=== PATIENT | female | born 1960 | race Hispanic/Latino ===

== ENCOUNTER 2018-12-30 19:19 | Emergency (ER) | payer OTHER ==
[2018-12-30 19:46] LABS: APPEARANCE,URINE Clear (CLEAR); BILIRUBIN,URINE Negative (NEGATIVE); COLOR,URINE Yellow (YELLOW); GLUCOSE, URINE (UA) Negative (NEGATIVE); KETONES,URINE Negative (NEGATIVE); LEUKOCYTE ESTERASE ,URINE Negative (NEGATIVE); NITRATE,URINE Negative (NEGATIVE); OCCULT BLOOD,URINE Negative (NEGATIVE); PROTEIN,URINE Negative (NEGATIVE)
[2018-12-30 19:56] LABS: BASOPHILS % (AUTO) 0.2 % (0.0-5.0); EOSINOPHILS % (AUTO) 1.7 % (0.0-8.0); HEMATOCRIT 39.2 % (36-48); LYMPHOCYTES % (AUTO) 5.8 % (21.0-51.0); MEAN CORPUSCULAR HEMOGLOBIN 32.1 pg (27.0-33.0); MEAN CORPUSCULAR HGB CONC 34.3 g/dL (32.0-36.0); MEAN CORPUSCULAR VOLUME 93.6 fL (79-99); MONOCYTES % (AUTO) 3.2 % (3.0-13.0); NEUTROPHILS % (AUTO) 89.1 % (40.0-77.0); PLATELET COUNT (AUTO) 212 K/uL (130-400); RED BLOOD CELL COUNT(AUTO) 4.19 MIL/uL (4.00-5.50); WHITE BLOOD COUNT (AUTO) 7.4 K/uL (4.8-10.8)
[2018-12-30 20:07] LABS: POTASSIUM 3.3 mmol/L (3.5-5.1)
[2018-12-30] MEDS ORDERED: ONDANSETRON HCL 4 MG/2 ML VIAL ONE (20:08)
[2018-12-30] MEDS ORDERED: DICYCLOMINE HCL 10 MG/ML 2ML AMP IM ONE (20:08)
[2018-12-30] MEDS ORDERED: ACETAMINOPHEN EXTRA STRENGTH 500 MG TABLET ONE (20:09)
[2018-12-30] MEDS ORDERED: SODIUM CHLORIDE 0.9% 1000ML 1,000 ML IV ONE ×2 (20:09→21:51)
[2018-12-30] MEDS ORDERED: SIMETHICONE 80 MG TAB.CHEW ONE (20:09)
[2018-12-30 20:10] LABS: INR 0.91 (0.85-1.15); PARTIAL THROMBOPLASTIN TIME 22.7 SEC (26.3-35.5); PROTHROMBIN TIME 9.6 SEC (9.6-11.6)
[2018-12-30 20:12] LABS: ALBUMIN 4.1 g/dL (3.5-5.0); BILIRUBIN,TOTAL 0.4 mg/dL (0.2-1.0)
[2018-12-30] MEDS ORDERED: KETOROLAC TROMETHAMINE 30MG/ML ONE (20:51)
[2018-12-30] MEDS ORDERED: MORPHINE SULFATE 2 MG/ML 1ML SYG ONE (21:51)
[2018-12-30] MEDS ORDERED: MAG HYDROX/AL HYDROX/SIMETH ES 30 ML SUSP UDCUP ONE (22:56)
[2018-12-30] MEDS ORDERED: LIDOCAINE HCL 2% VISCOUS 15 ML UDCUP ONE (22:56)
== END 2018-12-30 23:22 | disposition home or self-care (01) ==
LOC: EDH 19:19
DX: R19.7 Diarrhea, unspecified (principal); R11.10 Vomiting, unspecified; R10.13 Epigastric pain; R50.9 Fever, unspecified; I10 Essential (primary) hypertension
CPT/HCPCS: 36415; 80053; 81003; 82550; 83690; 84484; 85025; 85610; 85730; 93005; 96361; 96372; 96374; 96375; 99285; J0500; J1885; J2405; J7030 ×2

== ENCOUNTER 2021-03-09 05:30 | Observation (INO) | payer OTHER ==
[2021-03-08 15:18] LABS: BASOPHILS % (AUTO) 1.1 % (0.0-5.0); EOSINOPHILS % (AUTO) 2.7 % (0.0-8.0); HEMATOCRIT 39.7 % (36-48); LYMPHOCYTES % (AUTO) 33.1 % (21.0-51.0); MEAN CORPUSCULAR HEMOGLOBIN 31.2 pg (27.0-33.0); MEAN CORPUSCULAR HGB CONC 32.5 g/dL (32.0-36.0); MEAN CORPUSCULAR VOLUME 95.9 fL (79-99); MONOCYTES % (AUTO) 6.3 % (3.0-13.0); NEUTROPHILS % (AUTO) 56.4 % (40.0-77.0); PLATELET COUNT (AUTO) 185 K/uL (130-400); RED BLOOD CELL COUNT(AUTO) 4.14 MIL/uL (4.00-5.50); RED CELL DISTRIBUTION WIDTH 12.8 % (11.0-15.5); WHITE BLOOD COUNT (AUTO) 5.3 K/uL (4.8-10.8)
[2021-03-08 15:50] VITALS: BP 184/79
[~2021-03-09] VITALS: Ht 162.6 cm; Wt 78.7 kg
[2021-03-09] VITALS (24 sets, daily range): BP systolic 111–161; BP diastolic 60–83
[~2021-03-09 05:30] MED LIST: AEC81 PO; CEPH500C2 PO; ESOM40CA54 PO; ESZO2 PO; HYDR12.54 PO; LOSA100T58 PO; METO25 PO; NITR0.4T50 SL; SERT-439 PO
[2021-03-09] MEDS ORDERED: CEFAZOLIN SODIUM 1 GM VIAL ONE (06:05)
[2021-03-09] MEDS ORDERED: ONDANSETRON 4MG INJ ONE (06:39)
[2021-03-09] MEDS ORDERED: DEXAMETHASONE SOD PHOSPHATE 10MG/ML 1ML VIAL ONE (06:39)
[2021-03-09] MEDS ORDERED: LIDOCAINE PF 100MG/5ML (2%) SYRINGE 5ML ONE (06:39)
[2021-03-09] MEDS ORDERED: GLYCOPYRROLATE 1 MG/5 ML SYRINGE ONE (06:39)
[2021-03-09] MEDS ORDERED: NEOSTIGMINE 5MG/5ML SYR IV ONE (06:39)
[2021-03-09] MEDS ORDERED: SUCCINYLCHOLINE 200MG/10ML SYR ONE (06:39)
[2021-03-09] MEDS ORDERED: MIDAZOLAM HCL 1 MG/ML 2ML VIAL ONE (06:39)
[2021-03-09] MEDS ORDERED: FENTANYL CITRATE PF 50 MCG/1 ML 2ML VIAL ONE ×2 (06:40→08:05)
[2021-03-09] MEDS ORDERED: PROPOFOL 10 MG/ML 20ML VIAL IV ONE (06:40)
[2021-03-09] MEDS ORDERED: ROCURONIUM 10MG/1ML SYR 10 MG/ML ML ONE (06:40)
[2021-03-09] MEDS: LACTATED RINGERS 1000ML 1,000 ML IV SCH ×3 (06:49→08:54)
[2021-03-09] MEDS ORDERED: ESTROGENS,CONJUGATED 0.625 MG/GM 42.5 GM VAG CRM VG ONE (08:52)
[2021-03-09] MEDS ORDERED: MEPERIDINE-PF 25 MG/ML SYG ONE (09:29)
[2021-03-09] MEDS ORDERED: BISACODYL 10 MG SUPP.RECT RC PRN (11:00)
[2021-03-09] MEDS ORDERED: IBUPROFEN 600 MG TABLET PO PRN (11:00)
[2021-03-09] MEDS ORDERED: ONDANSETRON 4MG INJ IVP PRN (11:00)
[2021-03-09] MEDS ORDERED: ACETAMINOPHEN WITH CODEINE 1 TAB TAB PO PRN (11:00)
[2021-03-09] MEDS ORDERED: PROMETHAZINE HCL 25 MG/ML 1ML AMPULE IM PRN (11:00)
[2021-03-09] MEDS: MEPERIDINE-PF 75 MG/ML SYG IM PRN ×3 (11:52→21:17)
[2021-03-09] MEDS: PROMETHAZINE HCL 25 MG/ML 1ML AMPULE IM PRN ×3 (11:52→21:16)
[2021-03-09] MEDS: DEXTROSE 5 %-0.45 % NACL 1,000 ML IV PRN ×2 (11:52→19:03)
[2021-03-09] MEDS: SIMETHICONE 80 MG TAB.CHEW PO PRN (21:08)
[2021-03-09] MEDS: DOCUSATE SODIUM 100 MG CAP PO PRN (21:08)
[2021-03-10] MEDS: DEXTROSE 5 %-0.45 % NACL 1,000 ML IV PRN (02:50)
[2021-03-10 03:15] VITALS: BP 123/69
[2021-03-10] MEDS: PROMETHAZINE HCL 25 MG/ML 1ML AMPULE IM PRN (04:48)
[2021-03-10] MEDS: MEPERIDINE-PF 75 MG/ML SYG IM PRN (04:50)
[2021-03-10 05:39] LABS: HEMATOCRIT 34.4 % (36-48); MEAN CORPUSCULAR HEMOGLOBIN 31.3 pg (27.0-33.0); MEAN CORPUSCULAR HGB CONC 33.1 g/dL (32.0-36.0); MEAN CORPUSCULAR VOLUME 94.5 fL (79-99); RED BLOOD CELL COUNT(AUTO) 3.64 MIL/uL (4.00-5.50); RED CELL DISTRIBUTION WIDTH 12.5 % (11.0-15.5); WHITE BLOOD COUNT (AUTO) 8.4 K/uL (4.8-10.8)
[2021-03-10] MEDS ORDERED: HYDROCODONE/ACETAMINOPHEN 5/325 MG TAB PO PRN (07:30)
[2021-03-10] MEDS: IBUPROFEN 800 MG TAB PO PRN ×2 (09:43→20:11)
[2021-03-10] MEDS: DOCUSATE SODIUM 100 MG CAP PO PRN ×2 (09:43→21:54)
[2021-03-10] MEDS: SIMETHICONE 80 MG TAB.CHEW PO PRN ×2 (09:43→21:54)
[2021-03-10 11:01] VITALS: BP 145/65
[2021-03-10 16:32] VITALS: BP 106/58
[2021-03-10 19:52] VITALS: BP 100/53
[2021-03-10 23:02] VITALS: BP 106/55
[2021-03-11 03:08] VITALS: BP 103/52
[2021-03-11 07:13] VITALS: BP 122/71
[2021-03-11] MEDS: IBUPROFEN 800 MG TAB PO PRN ×2 (07:59→15:52)
[2021-03-11] MEDS: SIMETHICONE 80 MG TAB.CHEW PO PRN ×2 (07:59→15:51)
[2021-03-11] MEDS: DOCUSATE SODIUM 100 MG CAP PO PRN (07:59)
[2021-03-11 11:51] VITALS: BP 129/73
== END 2021-03-11 18:15 | disposition home or self-care (01) ==
LOC: DAH 05:30 → DAHIP 05:31 → DAH 05:31 → WSH 10:15
PROVIDERS: ADMIT Obstetrics & Gynecology; ATTEND Obstetrics & Gynecology
DX: N81.10 Cystocele, unspecified (principal); Z20.822 Contact with and (suspected) exposure to COVID-19; N81.6 Rectocele; N90.89 Other specified noninflammatory disorders of vulva and perineum; I10 Essential (primary) hypertension; F32.9 Major depressive disorder, single episode, unspecified; Z79.899 Other long term (current) drug therapy; Z98.890 Other specified postprocedural states; Z90.49 Acquired absence of other specified parts of digestive tract; Z90.710 Acquired absence of both cervix and uterus
CPT/HCPCS: 36415 ×2; 57265; 85025; 85027; 86850; 86900; 86901; 87635; 96360; 96361 ×2; 96372 ×2; A4215; A4216; A4221; A4222; A4223 ×2; A4344; A4351; A4510; A4600; A4606; A4663; A6260; C1771; C9803; G0378 ×58; J0330; J0690; J1100; J2001; J2175 ×5; J2250; J2405; J2550 ×4; J2704; J2710; J3010 ×2; J3490; J7120 ×2

== ENCOUNTER 2021-03-22 19:14 | Emergency (ER) | payer OTHER ==
[~2021-03-22] VITALS: Ht 162.6 cm; Wt 80.3 kg
[2021-03-22 19:53] LABS: BILIRUBIN,URINE Negative (NEGATIVE); COLOR,URINE Yellow (YELLOW); GLUCOSE, URINE (UA) Negative (NEGATIVE); KETONES,URINE Negative (NEGATIVE); LEUKOCYTE ESTERASE ,URINE Large (NEGATIVE); NITRATE,URINE Negative (NEGATIVE); OCCULT BLOOD,URINE Large (NEGATIVE); PH,URINE 6.5 (5.0-8.0); PROTEIN,URINE POS 1+ mg/dL (NEGATIVE)
[2021-03-22 19:54] LABS: APPEARANCE,URINE CLOUDY (CLEAR)
[2021-03-22 19:59] LABS: BACTERIA,URINE Few /HPF (None Seen); WBC,URINE 26-50 /HPF (0-1)
[2021-03-22 20:00] LABS: SQUAMOUS EPITHELIAL CELL,UR Few /HPF (0-2); TRANSITIONAL EPI CELLS,URINE Rare /HPF (None Seen)
[2021-03-22 20:21] LABS: BASOPHILS % (AUTO) 0.7 % (0.0-5.0); HEMATOCRIT 34.7 % (36-48); LYMPHOCYTES % (AUTO) 24.9 % (21.0-51.0); MEAN CORPUSCULAR HEMOGLOBIN 31.6 pg (27.0-33.0); MEAN CORPUSCULAR HGB CONC 33.7 g/dL (32.0-36.0); MEAN CORPUSCULAR VOLUME 93.8 fL (79-99); MONOCYTES % (AUTO) 6.7 % (3.0-13.0); NEUTROPHILS % (AUTO) 64.6 % (40.0-77.0); PLATELET COUNT (AUTO) 278 K/uL (130-400); RED CELL DISTRIBUTION WIDTH 12.8 % (11.0-15.5)
[2021-03-22 20:42] LABS: CREATININE 0.8 mg/dL (0.5-1.5); POTASSIUM 3.8 mmol/L (3.5-5.1)
[2021-03-22] MEDS ORDERED: PROCHLORPERAZINE 10MG/2ML INJ IVP ONE (20:45)
[2021-03-22] MEDS ORDERED: FAMOTIDINE 20MG VIAL IV ONE (20:45)
[2021-03-22 20:46] LABS: ALBUMIN 3.6 g/dL (3.5-5.0); BILIRUBIN,TOTAL 0.3 mg/dL (0.2-1.0); TOTAL PROTEIN, SERUM 7.3 g/dL (6.0-8.3)
[2021-03-22] MEDS ORDERED: LEVOFLOXACIN 500 MG TABLET ONE (23:17)
[2021-03-22] MEDS ORDERED: LEVO750T46 PO (23:20)
[2021-03-22 23:43] VITALS: BP 135/72
== END 2021-03-22 23:44 | disposition home or self-care (01) ==
LOC: EDH 19:14
DX: N99.820 Postprocedural hemorrhage of a genitourinary system organ or structure following a genitourinary system procedure (principal); R42 Dizziness and giddiness; R11.0 Nausea; R10.9 Unspecified abdominal pain; I10 Essential (primary) hypertension; F41.9 Anxiety disorder, unspecified; Z79.82 Long term (current) use of aspirin; Z79.899 Other long term (current) drug therapy; Z90.49 Acquired absence of other specified parts of digestive tract; Z98.890 Other specified postprocedural states
CPT/HCPCS: 36415; 80053; 81001; 82150; 83690; 84484; 85025; 87077 ×2; 87088; 87186 ×2; 96374; 96375; 99284; J0780; J3490

== ENCOUNTER 2022-03-07 09:17 | Emergency (ER) | payer OTHER ==
[~2022-03-07] VITALS: Ht 162.6 cm; Wt 88.9 kg
[~2022-03-07 09:17] MED LIST changes: +LEVO750T68 PO
[2022-03-07] MEDS ORDERED: IPRATROPIUM/ALBUTEROL SULFATE 3 ML SOLUTION IH ONE (09:30)
[2022-03-07] MEDS ORDERED: IBUPROFEN 800 MG TAB PO ONE (09:30)
[2022-03-07] MEDS ORDERED: DIPHENHYDRAMINE HCL 25 MG CAPSULE PO ONE (09:30)
[2022-03-07] MEDS ORDERED: FAMOTIDINE 20MG TAB PO ONE (09:30)
[2022-03-07 10:45] VITALS: BP 180/88
[2022-03-07] MEDS ORDERED: LORA-868 PO (10:51)
[2022-03-07] MEDS ORDERED: ALBUHFA IH (10:51)
[2022-03-07] MEDS ORDERED: OSEL75 PO (10:51)
== END 2022-03-07 10:57 | disposition home or self-care (01) ==
LOC: EDH 09:17
DX: J10.1 Influenza due to other identified influenza virus with other respiratory manifestations (principal); I10 Essential (primary) hypertension; Z79.1 Long term (current) use of non-steroidal anti-inflammatories (NSAID); Z79.82 Long term (current) use of aspirin; Z90.49 Acquired absence of other specified parts of digestive tract
CPT/HCPCS: 99284; 71045; 87635; 87804 ×2; 94640; Q0163; C9803

== ENCOUNTER 2022-05-07 06:06 | Emergency (ER) | payer OTHER ==
[~2022-05-07] VITALS: Ht 162.6 cm; Wt 87.5 kg
[~2022-05-07 06:06] MED LIST changes: +ALBUHFA IH; +LORA-868 PO; +OSEL75 PO
[2022-05-07 06:55] LABS: BASOPHILS % (AUTO) 0.2 % (0.0-5.0); HEMATOCRIT 40.4 % (36-48); LYMPHOCYTES % (AUTO) 7.4 % (21.0-51.0); MEAN CORPUSCULAR HGB CONC 34.4 g/dL (32.0-36.0); MEAN CORPUSCULAR VOLUME 90.2 fL (79-99); MONOCYTES % (AUTO) 3.9 % (3.0-13.0); NEUTROPHILS % (AUTO) 87.2 % (40.0-77.0); PLATELET COUNT (AUTO) 221 K/uL (130-400); RED BLOOD CELL COUNT(AUTO) 4.48 MIL/uL (4.00-5.50); RED CELL DISTRIBUTION WIDTH 12.4 % (11.0-15.5); WHITE BLOOD COUNT (AUTO) 6.2 K/uL (4.8-10.8)
[2022-05-07 07:04] LABS: APPEARANCE,URINE CLEAR (CLEAR); BILIRUBIN,URINE NEGATIVE (NEGATIVE); COLOR,URINE YELLOW (YELLOW); GLUCOSE, URINE (UA) NEGATIVE (NEGATIVE); KETONES,URINE NEGATIVE (NEGATIVE); LEUKOCYTE ESTERASE ,URINE NEGATIVE Leu/uL (NEGATIVE); NITRATE,URINE NEGATIVE (NEGATIVE); OCCULT BLOOD,URINE NEGATIVE (NEGATIVE); PROTEIN,URINE 20 mg/dL (NEGATIVE); UROBILINOGEN,URINE 0.2 mg/dL (0.2-1.0)
[2022-05-07 07:11] LABS: ALBUMIN 3.9 g/dL (3.5-5.0); CREATININE 0.7 mg/dL (0.5-1.5); POTASSIUM 3.4 mmol/L (3.5-5.1); TOTAL PROTEIN, SERUM 7.4 g/dL (6.0-8.3)
[2022-05-07] MEDS ORDERED: KETOROLAC 15MG/ML VIAL (15MG/ML) IV ONE (09:00)
[2022-05-07] MEDS ORDERED: PROCHLORPERAZINE 10MG/2ML INJ IV ONE (09:00)
[2022-05-07] MEDS ORDERED: LACTATED RINGERS 1000ML 1,000 ML IV ONE (09:00)
[2022-05-07] MEDS ORDERED: DiphenhydrAMINE HCL 50 MG/ML VIAL IV ONE (09:00)
[2022-05-07] MEDS ORDERED: LOPE2TAB26 PO (10:04)
[2022-05-07] MEDS ORDERED: IBUP-2070 PO (10:04)
[2022-05-07] MEDS ORDERED: ONDA4TAB10 PO (10:04)
[2022-05-07 10:22] VITALS: BP 129/76
== END 2022-05-07 10:22 | disposition home or self-care (01) ==
LOC: EDH 06:06
DX: K52.9 Noninfective gastroenteritis and colitis, unspecified (principal); E86.0 Dehydration; Z20.822 Contact with and (suspected) exposure to COVID-19; I10 Essential (primary) hypertension; Z98.890 Other specified postprocedural states; Z90.49 Acquired absence of other specified parts of digestive tract; Z79.899 Other long term (current) drug therapy; Z79.82 Long term (current) use of aspirin
CPT/HCPCS: 99284; 96374; 96375; 87635; 96361; 80053; 85025; 87804 ×2; 83605; 81003; 36415; C9803; J7120; J1200; J0780; J1885

== ENCOUNTER 2022-08-18 09:36 | Emergency (ER) | payer BC, OTHER ==
[~2022-08-18] VITALS: Ht 162.6 cm; Wt 88.0 kg
[~2022-08-18 09:36] MED LIST changes: +IBUP-2070 PO; +LOPE2TAB26 PO; +ONDA4TAB10 PO
[2022-08-18 09:41] VITALS: BP 183/77
[2022-08-18] MEDS ORDERED: ACETAMINOPHEN 500 MG TABLET PO ONE (10:00)
[2022-08-18 10:53] LABS: BASOPHILS % (AUTO) 0.5 % (0.0-5.0); EOSINOPHILS % (AUTO) 3.5 % (0.0-8.0); HEMATOCRIT 36.5 % (36-48); LYMPHOCYTES % (AUTO) 15.6 % (21.0-51.0); MEAN CORPUSCULAR HEMOGLOBIN 29.9 pg (27.0-33.0); MEAN CORPUSCULAR HGB CONC 32.9 g/dL (32.0-36.0); MONOCYTES % (AUTO) 9.1 % (3.0-13.0); NEUTROPHILS % (AUTO) 70.9 % (40.0-77.0); PLATELET COUNT (AUTO) 239 K/uL (130-400); RED BLOOD CELL COUNT(AUTO) 4.01 MIL/uL (4.00-5.50); RED CELL DISTRIBUTION WIDTH 13.2 % (11.0-15.5); WHITE BLOOD COUNT (AUTO) 8.3 K/uL (4.8-10.8)
[2022-08-18 11:09] LABS: ALBUMIN 3.9 g/dL (3.5-5.0); CREATININE 0.9 mg/dL (0.5-1.5); POTASSIUM 3.7 mmol/L (3.5-5.1); TOTAL PROTEIN, SERUM 7.2 g/dL (6.0-8.3)
[2022-08-18] MEDS ORDERED: AMOX500C2 PO (12:08)
[2022-08-18] MEDS ORDERED: FLUT16H NASAL (12:08)
[2022-08-18 12:13] LABS: APPEARANCE,URINE CLEAR (CLEAR); BILIRUBIN,URINE NEGATIVE (NEGATIVE); COLOR,URINE LIGHT-YELLOW (YELLOW); GLUCOSE, URINE (UA) NEGATIVE (NEGATIVE); KETONES,URINE NEGATIVE (NEGATIVE); LEUKOCYTE ESTERASE ,URINE NEGATIVE Leu/uL (NEGATIVE); NITRATE,URINE NEGATIVE (NEGATIVE); OCCULT BLOOD,URINE NEGATIVE (NEGATIVE); PROTEIN,URINE NEGATIVE (NEGATIVE); UROBILINOGEN,URINE 0.2 mg/dL (0.2-1.0)
== END 2022-08-18 12:51 | disposition home or self-care (01) ==
LOC: EDH 09:36
DX: J32.9 Chronic sinusitis, unspecified (principal); I10 Essential (primary) hypertension; Z90.710 Acquired absence of both cervix and uterus; Z90.49 Acquired absence of other specified parts of digestive tract; Z79.1 Long term (current) use of non-steroidal anti-inflammatories (NSAID); Z79.82 Long term (current) use of aspirin; Z79.899 Other long term (current) drug therapy; Z20.822 Contact with and (suspected) exposure to COVID-19
CPT/HCPCS: 99283; 71045; 87635; 80053; 85025; 87804 ×2; 81003; 36415; C9803

== ENCOUNTER 2022-10-06 15:29 | Observation (INO) | payer BC ==
[~2022-10-06] VITALS: Ht 157.5 cm; Wt 88.1 kg
[~2022-10-06 15:29] MED LIST changes: +AMOX500C2 PO; +FLUT16H NASAL; -LOSA100T58 PO; +LOSA100T59 PO
[2022-10-06 16:07] LABS: BASOPHILS % (AUTO) 0.9 % (0.0-5.0); EOSINOPHILS % (AUTO) 4.6 % (0.0-8.0); HEMATOCRIT 38.8 % (36-48); LYMPHOCYTES % (AUTO) 34.7 % (21.0-51.0); MEAN CORPUSCULAR HEMOGLOBIN 29.7 pg (27.0-33.0); MEAN CORPUSCULAR HGB CONC 33.5 g/dL (32.0-36.0); MEAN CORPUSCULAR VOLUME 88.8 fL (79-99); MONOCYTES % (AUTO) 7.7 % (3.0-13.0); NEUTROPHILS % (AUTO) 51.9 % (40.0-77.0); PLATELET COUNT (AUTO) 208 K/uL (130-400); RED BLOOD CELL COUNT(AUTO) 4.37 MIL/uL (4.00-5.50); RED CELL DISTRIBUTION WIDTH 13.2 % (11.0-15.5); WHITE BLOOD COUNT (AUTO) 5.7 K/uL (4.8-10.8)
[2022-10-06 16:20] LABS: POTASSIUM 3.4 mmol/L (3.5-5.1)
[2022-10-06 16:23] LABS: INR 0.94 (0.85-1.15); PROTHROMBIN TIME 10.3 SEC (9.6-11.6)
[2022-10-06 16:24] LABS: PARTIAL THROMBOPLASTIN TIME 26.6 SEC (26.3-35.5)
[2022-10-06] MEDS ORDERED: IOHEXOL-350 75 ML VIAL IV ONE (16:27)
[2022-10-06] MEDS ORDERED: HEPARIN 25,000 UNITS/250ML D5W 250 ML IV SCH (17:30)
[2022-10-06] MEDS ORDERED: CLONIDINE HCL 0.1 MG TABLET PO PRN (20:30)
[2022-10-06] MEDS ORDERED: HYDRALAZINE 20MG/ML VIAL IV PRN (20:30)
[2022-10-06] MEDS ORDERED: LACTULOSE 20 GM/30 ML UDCUP PO PRN (20:30)
[2022-10-06] MEDS ORDERED: ONDANSETRON 4MG INJ IVP PRN (20:30)
[2022-10-06] MEDS ORDERED: LABETALOL 20MG SYG IV PRN (20:30)
[2022-10-06] MEDS ORDERED: ACETAMINOPHEN 650 MG SUPPOSITORY RC PRN (20:30)
[2022-10-06] MEDS: LACTATED RINGERS 1000ML 1,000 ML IV SCH (20:59)
[2022-10-06] MEDS: ACETAMINOPHEN 325 MG TAB PO PRN (21:00)
[2022-10-06] MEDS: INSULIN HUMULIN R 100 UNIT/ML 3ML SQ SCH (21:00)
[2022-10-06] MEDS ORDERED: ENOXAPARIN SODIUM 100 MG/1 ML SQ ONE (21:30)
[2022-10-06 22:25] VITALS: BP 150/73
[2022-10-06] MEDS ORDERED: VANCOMYCIN PROTOCOL PER PHARMACY IV SCH (23:00)
[2022-10-06] MEDS ORDERED: ZOLP5TAB2 PO (23:01)
[2022-10-06] MEDS ORDERED: VANCOMYCIN 1G/250ML KIT 250 ML IV ONE (23:45)
[2022-10-07] MEDS ORDERED: HYDROMORPHONE 1 MG INJ IVP ONE
[2022-10-07 03:31] VITALS: BP 101/48
[2022-10-07] MEDS: KETOROLAC 15MG/ML VIAL (15MG/ML) IV PRN ×3 (04:34→21:52)
[2022-10-07] MEDS: ACETAMINOPHEN 325 MG TAB PO PRN ×2 (05:23→20:17)
[2022-10-07] MEDS: INSULIN HUMULIN R 100 UNIT/ML 3ML SQ SCH ×4 (05:44→19:54)
[2022-10-07 06:03] LABS: HEMATOCRIT 34.1 % (36-48); MEAN CORPUSCULAR HEMOGLOBIN 30.4 pg (27.0-33.0); MEAN CORPUSCULAR HGB CONC 33.4 g/dL (32.0-36.0); MEAN CORPUSCULAR VOLUME 90.9 fL (79-99); RED BLOOD CELL COUNT(AUTO) 3.75 MIL/uL (4.00-5.50); RED CELL DISTRIBUTION WIDTH 13.3 % (11.0-15.5); WHITE BLOOD COUNT (AUTO) 5.4 K/uL (4.8-10.8)
[2022-10-07 06:35] LABS: CREATININE 0.9 mg/dL (0.5-1.5); MAGNESIUM 1.9 mg/dL (1.80-2.40); PHOSPHORUS 3.8 mg/dL (2.5-4.9); POTASSIUM 4.2 mmol/L (3.5-5.1)
[2022-10-07 08:00] VITALS: BP 126/68
[2022-10-07] MEDS: FAMOTIDINE 20MG TAB PO SCH (08:55)
[2022-10-07] MEDS: ENOXAPARIN SODIUM 100 MG/1 ML SQ SCH ×2 (08:56→20:16)
[2022-10-07] MEDS: LACTATED RINGERS 1000ML 1,000 ML IV SCH ×2 (10:42→23:10)
[2022-10-07] MEDS ORDERED: ZOLPIDEM TARTRATE 5 MG TAB PO PRN (11:00)
[2022-10-07] MEDS ORDERED: ALPRAZOLAM 0.25 MG TABLET PO PRN (11:00)
[2022-10-07] MEDS ORDERED: HYDROCODONE/ACETAMINOPHEN 5/325 MG TAB PO PRN (11:00)
[2022-10-07 11:35] LABS: ABG BASE EXCESS -1.5 mmol/L (-2.0-3.0); ABG HCO3 22.6 mmol/L (21.0-28.0); ABG OXYGEN SATURATION 93.8 % (95.0-99.0); ABG PCO2 36 mmHg (32-45)
[2022-10-07 12:00] VITALS: BP 126/61
[2022-10-07 16:00] VITALS: BP 147/69
[2022-10-07 19:18] VITALS: BP 121/88
[2022-10-07] MEDS: APIXABAN 5 MG TABLET PO SCH (20:15)
[2022-10-07] MEDS ORDERED: VANCOMYCIN 1G/250ML KIT 250 ML IV SCH (21:00)
[2022-10-07 23:21] VITALS: BP 141/84
[2022-10-08] MEDS: LACTATED RINGERS 1000ML 1,000 ML IV SCH (02:04)
[2022-10-08 03:55] VITALS: BP 142/76
[2022-10-08 05:30] LABS: HEMATOCRIT 33.1 % (36-48); MEAN CORPUSCULAR HEMOGLOBIN 29.9 pg (27.0-33.0); MEAN CORPUSCULAR HGB CONC 32.9 g/dL (32.0-36.0); MEAN CORPUSCULAR VOLUME 90.9 fL (79-99); RED BLOOD CELL COUNT(AUTO) 3.64 MIL/uL (4.00-5.50); RED CELL DISTRIBUTION WIDTH 13.4 % (11.0-15.5); WHITE BLOOD COUNT (AUTO) 4.2 K/uL (4.8-10.8)
[2022-10-08 05:55] LABS: CREATININE 0.8 mg/dL (0.5-1.5); MAGNESIUM 1.9 mg/dL (1.80-2.40); POTASSIUM 3.5 mmol/L (3.5-5.1)
[2022-10-08] MEDS: INSULIN HUMULIN R 100 UNIT/ML 3ML SQ SCH ×2 (05:56→11:30)
[2022-10-08 08:41] VITALS: BP 161/88
[2022-10-08] MEDS: FAMOTIDINE 20MG TAB PO SCH (08:58)
[2022-10-08] MEDS: APIXABAN 5 MG TABLET PO SCH (08:58)
[2022-10-08 12:27] VITALS: BP 150/84
[2022-10-14] MEDS ORDERED: APIXABAN 5 MG TABLET PO SCH (21:00)
== END 2022-10-08 13:50 | disposition home or self-care (01) ==
LOC: EDH 15:29 → EDHIP 20:07 → 3CH 22:47
PROVIDERS: ADMIT Internal Medicine Critical Care Medicine; ATTEND Internal Medicine Critical Care Medicine
DX: I82.4Z2 Acute embolism and thrombosis of unspecified deep veins of left distal lower extremity (principal); J96.01 Acute respiratory failure with hypoxia; I10 Essential (primary) hypertension; E66.01 Morbid (severe) obesity due to excess calories; F41.9 Anxiety disorder, unspecified; M70.52 Other bursitis of knee, left knee; Z68.36 Body mass index [BMI] 36.0-36.9, adult; Z86.711 Personal history of pulmonary embolism; Z90.49 Acquired absence of other specified parts of digestive tract; Z90.710 Acquired absence of both cervix and uterus; Z79.899 Other long term (current) drug therapy
CPT/HCPCS: 96372 ×2; 96361 ×3; 96365; 96375 ×2; 80048 ×3; 85025; 85378; 85610; 85730; 82948 ×7; 36415 ×3; 71270; 93970; 99291; 93005; 96376; 96366; 83735 ×2; 84100; 82803; 85027 ×2; 36600; 94660; 85732; G0378 ×42; J7120; J1170; J0360; J2405 ×2; J1650 ×3; J3370; Q9967; J1885 ×3

== ENCOUNTER 2022-10-25 06:31 | Emergency (ER) | payer BC ==
[~2022-10-25] VITALS: Ht 157.5 cm; Wt 90.4 kg
[~2022-10-25 06:31] MED LIST changes: -AEC81 PO; -ALBUHFA IH; -AMOX500C2 PO; -CEPH500C2 PO; -ESOM40CA54 PO; -ESZO2 PO; -FLUT16H NASAL; -IBUP-2070 PO; -LEVO750T68 PO; -LOPE2TAB26 PO; -LORA-868 PO; -NITR0.4T50 SL; -ONDA4TAB10 PO; -OSEL75 PO; -SERT-439 PO; +ZOLP5TAB2 PO
[2022-10-25] MEDS ORDERED: 0.9%NACL 1000ML 1,000 ML IV ONE (07:00)
[2022-10-25] MEDS ORDERED: ONDANSETRON 4MG INJ IVP ONE (07:00)
[2022-10-25 07:09] LABS: BASOPHILS % (AUTO) 0.5 % (0.0-5.0); EOSINOPHILS % (AUTO) 3.6 % (0.0-8.0); MEAN CORPUSCULAR HEMOGLOBIN 30.4 pg (27.0-33.0); MEAN CORPUSCULAR HGB CONC 33.3 g/dL (32.0-36.0); MEAN CORPUSCULAR VOLUME 91.3 fL (79-99); MONOCYTES % (AUTO) 7.3 % (3.0-13.0); NEUTROPHILS % (AUTO) 71.1 % (40.0-77.0); PLATELET COUNT (AUTO) 276 K/uL (130-400); RED BLOOD CELL COUNT(AUTO) 4.71 MIL/uL (4.00-5.50); RED CELL DISTRIBUTION WIDTH 13.8 % (11.0-15.5); WHITE BLOOD COUNT (AUTO) 7.3 K/uL (4.8-10.8)
[2022-10-25 07:12] LABS: APPEARANCE,URINE TURBID (CLEAR); BILIRUBIN,URINE NEGATIVE (NEGATIVE); COLOR,URINE YELLOW (YELLOW); GLUCOSE, URINE (UA) 50 mg/dL (NEGATIVE); KETONES,URINE NEGATIVE (NEGATIVE); LEUKOCYTE ESTERASE ,URINE 250 Leu/uL (NEGATIVE); NITRATE,URINE NEGATIVE (NEGATIVE); PH,URINE 5.5 (5.0-8.0); PROTEIN,URINE 100 mg/dL (NEGATIVE)
[2022-10-25 07:16] LABS: BACTERIA,URINE FEW /HPF (None Seen); HYALINE CASTS, URINE >100 /LPF (0-1 /LPF); MUCUS,URINE MANY LPF (None Seen); SQUAMOUS EPITHELIAL CELL,UR MANY /HPF (0-2); WBC,URINE 26-50 /HPF (0-1)
[2022-10-25] MEDS ORDERED: MORPHINE 2 MG SYG IVP ONE (07:30)
[2022-10-25 07:36] VITALS: BP 122/61
[2022-10-25 08:15] LABS: ALBUMIN 3.2 g/dL (3.5-5.0); CREATININE 1.3 mg/dL (0.5-1.5); POTASSIUM 3.2 mmol/L (3.5-5.1); TOTAL PROTEIN, SERUM 6.4 g/dL (6.0-8.3)
[2022-10-25] MEDS ORDERED: KCL 20 MEQ ERTAB PO ONE (08:30)
[2022-10-25] MEDS ORDERED: LACT10SO5 PO (08:38)
== END 2022-10-25 09:10 | disposition home or self-care (01) ==
LOC: EDH 06:31
DX: K59.00 Constipation, unspecified (principal); R10.13 Epigastric pain; R10.12 Left upper quadrant pain; R11.0 Nausea; I10 Essential (primary) hypertension; Z79.899 Other long term (current) drug therapy; Z90.710 Acquired absence of both cervix and uterus; Z90.49 Acquired absence of other specified parts of digestive tract
CPT/HCPCS: 99284; 74176; 96374; 96361; 96375; 84484; 80053; 83690; 85025; 87088; 81001; 36415; 93005; J2270; J7030; J2405

== ENCOUNTER 2023-04-29 06:19 | Emergency (ER) | payer BC ==
[~2023-04-29] VITALS: Ht 162.6 cm; Wt 93.0 kg
[~2023-04-29 06:19] MED LIST changes: +LACT10SO5 PO
[2023-04-29] MEDS ORDERED: MECLIZINE HCL 25 MG TABLET PO ONE (06:30)
[2023-04-29 07:19] VITALS: BP 175/76; PULSE 50; RESP 16; O2SAT 97
[2023-04-29 07:19] LABS: BASOPHILS # (AUTO) 0.06 K/uL (0.00-0.20); EOSINOPHILS # (AUTO) 0.33 K/uL (0.00-0.70); EOSINOPHILS % (AUTO) 5.5 % (0.0-8.0); IMMATURE GRANULOCYTE ABSOLUTE 0.03 K/uL (0-1); LYMPHOCYTES # (AUTO) 1.9 K/uL (1.0-4.8); LYMPHOCYTES % (AUTO) 30.8 % (21.0-51.0); MEAN CORPUSCULAR HEMOGLOBIN 31.2 pg (27.0-33.0); MEAN CORPUSCULAR HGB CONC 33.5 g/dL (32.0-36.0); MONOCYTES # (AUTO) 0.4 K/uL (0.1-1.0); NEUTROPHILS # (AUTO) 3.3 K/uL (1.8-7.7); NEUTROPHILS % (AUTO) 55.2 % (40.0-77.0); PLATELET COUNT (AUTO) 218 K/uL (130-400); RED CELL DISTRIBUTION WIDTH 12.7 % (11.0-15.5)
[2023-04-29 08:18] LABS: CREATININE 0.8 mg/dL (0.5-1.5); POTASSIUM 4.2 mmol/L (3.5-5.1)
[2023-04-29 08:25] LABS: BILIRUBIN,TOTAL 0.6 mg/dL (0.2-1.0); TOTAL PROTEIN, SERUM 7.8 g/dL (6.0-8.3)
[2023-04-29] MEDS ORDERED: PRED20TA3 PO (10:11)
[2023-04-29] MEDS ORDERED: FLUT16H NASAL (10:12)
[2023-04-29] MEDS ORDERED: MECL-302 PO (10:12)
[2023-04-29] MEDS ORDERED: PREDNISONE 20 MG TABLET PO ONE (10:30)
== END 2023-04-29 10:25 | disposition home or self-care (01) ==
LOC: EDH 06:19
DX: H81.13 Benign paroxysmal vertigo, bilateral (principal); H65.93 Unspecified nonsuppurative otitis media, bilateral; I10 Essential (primary) hypertension; Z90.49 Acquired absence of other specified parts of digestive tract; Z90.710 Acquired absence of both cervix and uterus; Z79.899 Other long term (current) drug therapy; Z98.890 Other specified postprocedural states
CPT/HCPCS: 36415; 70450; 80053; 82550; 84484; 85025; 93005

== ENCOUNTER 2023-06-06 07:19 | Emergency (ER) | payer BC ==
[~2023-06-06] VITALS: Ht 162.6 cm; Wt 84.4 kg
[~2023-06-06 07:19] MED LIST changes: +FLUT16H NASAL; +MECL-302 PO; +PRED20TA3 PO
[2023-06-06 11:12] LABS: CREATININE 1.1 mg/dL (0.5-1.5); POTASSIUM 3.9 mmol/L (3.5-5.1)
[2023-06-06 11:17] LABS: ALBUMIN 4.3 g/dL (3.5-5.0); BASOPHILS # (AUTO) 0.05 K/uL (0.00-0.20); BASOPHILS % (AUTO) 0.7 % (0.0-5.0); BILIRUBIN,TOTAL 0.5 mg/dL (0.2-1.0); EOSINOPHILS # (AUTO) 0.13 K/uL (0.00-0.70); EOSINOPHILS % (AUTO) 1.7 % (0.0-8.0); HEMATOCRIT 41.8 % (36-48); IMMATURE GRANULOCYTE ABSOLUTE 0.03 K/uL (0-1); LYMPHOCYTES # (AUTO) 1.8 K/uL (1.0-4.8); LYMPHOCYTES % (AUTO) 23.5 % (21.0-51.0); MEAN CORPUSCULAR HEMOGLOBIN 31.9 pg (27.0-33.0); MEAN CORPUSCULAR HGB CONC 34.7 g/dL (32.0-36.0); MEAN CORPUSCULAR VOLUME 92.1 fL (79-99); MONOCYTES # (AUTO) 0.5 K/uL (0.1-1.0); NEUTROPHILS % (AUTO) 66.7 % (40.0-77.0); PLATELET COUNT (AUTO) 219 K/uL (130-400); RED BLOOD CELL COUNT(AUTO) 4.54 MIL/uL (4.00-5.50); RED CELL DISTRIBUTION WIDTH 12.6 % (11.0-15.5); TOTAL PROTEIN, SERUM 8.3 g/dL (6.0-8.3); WHITE BLOOD COUNT (AUTO) 7.5 K/uL (4.8-10.8)
[2023-06-06] MEDS: KETOROLAC 15MG/ML VIAL (15MG/ML) IV ONE (13:00)
[2023-06-06] MEDS: FAMOTIDINE 20MG VIAL IV ONE (13:00)
[2023-06-06] MEDS: ONDANSETRON 4MG INJ IVP ONE (13:00)
[2023-06-06] MEDS ORDERED: ONDA4TAB10 PO (13:42)
[2023-06-06] MEDS ORDERED: PANT40TA PO (13:42)
[2023-06-06 13:53] VITALS: BP 154/78; PULSE 78; RESP 18; O2SAT 98
[2023-06-06 14:20] LABS: APPEARANCE,URINE CLEAR (CLEAR); BILIRUBIN,URINE NEGATIVE (NEGATIVE); COLOR,URINE LIGHT-YELLOW (YELLOW); GLUCOSE, URINE (UA) >=1000 mg/dL (NEGATIVE); KETONES,URINE NEGATIVE (NEGATIVE); LEUKOCYTE ESTERASE ,URINE NEGATIVE Leu/uL (NEGATIVE); NITRATE,URINE NEGATIVE (NEGATIVE); OCCULT BLOOD,URINE NEGATIVE (NEGATIVE); PROTEIN,URINE NEGATIVE (NEGATIVE); UROBILINOGEN,URINE 0.2 mg/dL (0.2-1.0)
[2023-06-06 14:27] LABS: ADD UA MICROSCOPIC YES
[2023-06-06 14:32] LABS: SQUAMOUS EPITHELIAL CELL,UR RARE /HPF (0-2); YEAST,URINE BUDDING RARE /HPF (None Seen)
== END 2023-06-06 14:00 | disposition home or self-care (01) ==
LOC: EDH 07:19
DX: R10.13 Epigastric pain (principal); R11.2 Nausea with vomiting, unspecified; R19.7 Diarrhea, unspecified
CPT/HCPCS: 99284; 74176; 96374; 96375; 86677; 80053; 83690; 85025; 81001; 36415; J3490; J2405; J1885

== ENCOUNTER 2023-08-06 16:40 | Emergency (ER) | payer BC ==
[~2023-08-06] VITALS: Ht 162.6 cm; Wt 83.5 kg
[~2023-08-06 16:40] MED LIST changes: +MECL-160 PO; -MECL-302 PO; +ONDA4TAB10 PO; +PANT40TA PO
[2023-08-06 20:16] LABS: APPEARANCE,URINE CLEAR (CLEAR); BILIRUBIN,URINE NEGATIVE (NEGATIVE); COLOR,URINE LIGHT-YELLOW (YELLOW); GLUCOSE, URINE (UA) NEGATIVE (NEGATIVE); KETONES,URINE NEGATIVE (NEGATIVE); LEUKOCYTE ESTERASE ,URINE 250 Leu/uL (NEGATIVE); NITRATE,URINE NEGATIVE (NEGATIVE); OCCULT BLOOD,URINE NEGATIVE (NEGATIVE); PROTEIN,URINE NEGATIVE (NEGATIVE); UROBILINOGEN,URINE 0.2 mg/dL (0.2-1.0)
[2023-08-06 20:18] LABS: ADD UA MICROSCOPIC YES
[2023-08-06 20:20] LABS: BACTERIA,URINE RARE /HPF (None Seen); MUCUS,URINE RARE LPF (None Seen); SQUAMOUS EPITHELIAL CELL,UR FEW /HPF (0-2)
[2023-08-06] MEDS: ONDANSETRON 4MG INJ IVP ONE (20:59)
[2023-08-06] MEDS: KETOROLAC 60 MG VIAL (30MG/ML) IM ONE (20:59)
[2023-08-06] MEDS ORDERED: ONDA4TAB10 PO (21:25)
[2023-08-06] MEDS ORDERED: CEPH500C2 PO (21:25)
[2023-08-06] MEDS ORDERED: FAMO-136 PO (21:25)
[2023-08-06 21:33] LABS: BASOPHILS # (AUTO) 0.06 K/uL (0.00-0.20); BASOPHILS % (AUTO) 0.9 % (0.0-5.0); EOSINOPHILS # (AUTO) 0.33 K/uL (0.00-0.70); HEMATOCRIT 37.3 % (36-48); IMMATURE GRANULOCYTE ABSOLUTE 0.02 K/uL (0-1); LYMPHOCYTES # (AUTO) 1.9 K/uL (1.0-4.8); LYMPHOCYTES % (AUTO) 29.5 % (21.0-51.0); MEAN CORPUSCULAR HEMOGLOBIN 31.3 pg (27.0-33.0); MEAN CORPUSCULAR HGB CONC 33.8 g/dL (32.0-36.0); MEAN CORPUSCULAR VOLUME 92.8 fL (79-99); MONOCYTES # (AUTO) 0.6 K/uL (0.1-1.0); MONOCYTES % (AUTO) 8.4 % (3.0-13.0); NEUTROPHILS # (AUTO) 3.7 K/uL (1.8-7.7); NEUTROPHILS % (AUTO) 55.9 % (40.0-77.0); PLATELET COUNT (AUTO) 253 K/uL (130-400); RED BLOOD CELL COUNT(AUTO) 4.02 MIL/uL (4.00-5.50); RED CELL DISTRIBUTION WIDTH 12.9 % (11.0-15.5); WHITE BLOOD COUNT (AUTO) 6.6 K/uL (4.8-10.8)
[2023-08-06 21:42] LABS: CREATININE 1.1 mg/dL (0.5-1.5); POTASSIUM 3.5 mmol/L (3.5-5.1)
[2023-08-06] MEDS: CEFTRIAXONE 1G VIAL IM ONE (21:51)
[2023-08-06 22:19] VITALS: BP 159/92; PULSE 64; RESP 19; O2SAT 99
== END 2023-08-06 22:20 | disposition home or self-care (01) ==
LOC: EDH 16:40
DX: K57.90 Diverticulosis of intestine, part unspecified, without perforation or abscess without bleeding (principal); K52.9 Noninfective gastroenteritis and colitis, unspecified; N39.0 Urinary tract infection, site not specified; I10 Essential (primary) hypertension; Z79.899 Other long term (current) drug therapy; Z90.49 Acquired absence of other specified parts of digestive tract; Z90.710 Acquired absence of both cervix and uterus; Z98.890 Other specified postprocedural states
CPT/HCPCS: 99284; 74176; 96374; 80048; 85025; 87088; 81001; 36415; 96372 ×2; J0696; J2405; J1885

== ENCOUNTER 2024-11-20 06:32 | Inpatient (IN) | payer BC ==
[~2024-11-20] VITALS: Ht 160 cm; Wt 85.5 kg
[~2024-11-20 06:32] MED LIST changes: +AMLO-258 PO; -FLUT16H NASAL; -HYDR12.54 PO; -LACT10SO5 PO; -LOSA100T59 PO; -MECL-160 PO; +METO-391 PO; -METO25 PO; -ONDA4TAB10 PO; -PANT40TA PO; -PRED20TA3 PO; +ZOLP-684 PO; -ZOLP5TAB2 PO
[2024-11-20] MEDS ORDERED: RIVA10TA PO (06:40)
[2024-11-20] MEDS ORDERED: LOSA25TA41 PO (06:41)
[2024-11-20] MEDS ORDERED: HYDR12.54 PO (06:41)
--- NOTE | 2024-11-20 07:06 | NUR ---
REPORT GIVEN TO XI AG AT THIS TIME
--- NOTE | 2024-11-20 07:13 | ERN ---
General Chief Complaint: Diarrhea Stated Complaint: DIARRHEA Time Seen by MD: 07:00 Source: patient History of Present Illness Initial Comments Patient is a 64-year-old female coming in with diarrhea. Per patient she has been very nauseous has multiple diarrheal episodes. She states that this began a couple of days ago after getting coming back from a trip from [place]. Her s ymptoms had improved she was doing better then again two days ago the symptoms resurface and states he can not tolerate anything orally. Allergies: Coded Allergies: No Known Drug Allergies (Unverified Allergy, Unknown, 12/05/20) Home Meds Reported Medications Hydrochlorothiazide (Hydrochlorothiazide) 12.5 Mg Tablet, 1 TAB PO DAILY for 30 Days, #30 TAB 0 Refills 11/20/24 Losartan Potassium (Losartan Potassium) 25 Mg Tablet, 1 TAB PO DAILY for 30 Days, #30 TAB 0 Refills 11/20/24 Rivaroxaban (Xarelto) 10 Mg Tablet, 1 TAB PO DAILY for 7 Days, #7 TAB 0 Refills 11/20/24 Amlodipine Besylate (Amlodipine Besylate) 10 Mg Tablet, 10 MG PO DAILY for 30 Days, #30 TAB 0 Refills 10/13/24 Metoprolol Succinate (Metoprolol Succinate) 50 Mg Tab.er.24h, 50 MG PO BID, TAB 10/13/24 Zolpidem Tartrate (Ambien) 5 Mg Tablet, 5 MG PO HS for INSOMNIA, TAB 10/06/22 Past Medical History Past Medical History: DVT, Hypertension, Other Medical History Other: PULMONARY EMBOLISM Past Surgical History: Hysterectomy, Cholecystectomy, Other Surgical History Other: BLADDER SX Family History Family History: Negative Social History Social History: Negative, Lives with family Female( History) History: Not Applicable ROS Dictation CONSTITUTIONAL: No chills, no fever, no weakness, no diaphoresis, no malaise. HEAD/FACE: No signs of trauma. EENT: No eye pain, no blurred vision, no tearing, no double vision, no ear pain, no ear discharge, no nose pain, no nasal congestion, no throat pain, no throat swelling, no mouth pain. RESPIRATORY: No cough, no orthopnea, no SOB, no stridor, no wheezing. CARDIOVASCULAR: No chest pain, no edema, no palpitations, no syncope. GASTROINTESTINAL/ABDOMINAL: abdominal pain, no constipation, no diarrhea, no nausea, no vomiting. GENITOURINARY: No abnormal discharge, no dysuria, no frequent urination, no hematuria. No complaints of pain in the genitals. MUSCULOSKELETAL: No back pain, no gout, no joint pain, no joint swelling, no muscle pain, no muscle stiffness, no neck pain. INTEGUMENTARY: No change in color, no change in hair/nails, no dryness, no lesion, no lumps, no rash. NEUROLOGICAL/PSYCH: No anxiety, not depressed, no emotional problem, no headache, no numbness, no pre-existing deficit, no history of seizures, no tremors, no weakness. HEMATOLOGIC/LYMPHATIC: Not anemic, no history of blood clots, no apparent bleeding, no bruising, glands not swollen. All Systems Negative, Except as Noted. Physical Exam Physical Exam Dictation VITAL SIGNS: Reviewed. GENERAL APPEARANCE: Alert, oriented x3, no acute distress, obese. HEAD AND FACE: Non-traumatic. EYES: PERRL, pink conjunctivas, eyelid no trauma, anterior chamber clear. EARS: Pinnas intact and no signs of trauma or erythema. Ear canals clear and no discharge. TMs no erythema. NOSE: No discharge, no bleeding. OROPHARYNX: Mouth normal, teeth no caries, tongue pink. Pharynx clear, no erythema. Tonsils no exudates, no abscesses noted. Mucous membrane moist. NECK: Supple, non-tender, no thyromegaly, no masses, no JVD, no bruits. BREAST: Deferred. CHEST: No tenderness, no crepitus, no paradoxical movement, no retractions. LUNGS: Clear, well-ventilated, symmetric, no rales, no wheezing, no rhonchi, no stridor, good breath sounds bilaterally. HEART: Regular rate, regular rhythm, no murmur, no gallops. VASCULAR: No peripheral edema. ABDOMEN: Soft, positive bowel sounds, nondistended, no guarding, nontender, no rebound, no masses no hepatomegaly, no splenomegaly, no Pearson's sign, no hernias. RECTAL: Deferred. GENITAL: Deferred. NEUROLOGICAL: Normal speech, gross motor function intact, gross sensory function intact. MUSCULOSKELETAL: Neck nontender, full range of motion, back nontender, full range of motion. EXTREMITIES: Nontender, full range of motion. SKIN: Color pink, dry, no turgor, no rash, no lacerations, no abrasions, no contusions. LYMPHATICS: Deferred. Results Laboratory and Microbiology Lab and Micro Result Laboratory Tests Test 11/20/24 07:13 White Blood Count 5.5 K/uL (4.8-10.8) Red Blood Count 3.86 MIL/uL (4.00-5.50) L Hemoglobin 12.3 g/dL (12.0-16.0) Hematocrit 37.2 % (36-48) Mean Corpuscular Volume 96.4 fL (79-99) Mean Corpuscular Hemoglobin 31.9 pg (27.0-33.0) Mean Corpuscular Hemoglobin Concent 33.1 g/dL (32.0-36.0) Red Cell Distribution Width 13.7 % (11.0-15.5) Platelet Count 234 K/uL (130-400) Mean Platelet Volume 9.2 fL (7.5-10.5) Segmented Neutrophils % 65 % (40-70) Lymphocytes % (Manual) 19 % (22-44) L Monocytes % (Manual) 9 % (2-9) Eosinophils % (Manual) 5 % (1-6) Nucleated Red Blood Cells 0.0 % (0.0-0.19) Differential Comment MANUAL DIFFERENTIAL Reactive Lymphocytes 2 % (0-0) H White Cell Morphology Comment Platelet Morphology Comment ADEQUATE Red Blood Cell Morphology NORMAL Sodium Level 140 mmol/L (136-145) Potassium Level 4.0 mmol/L (3.5-5.1) Chloride Level 106 mmol/L (101-111) Carbon Dioxide Level 27 mmol/L (21-32) Blood Urea Nitrogen 16 mg/dL (7-18) Creatinine 1.4 mg/dL (0.5-1.0) H Glomerular Filtration Rate Calc 42 mL/min (>90) Random Glucose 107 mg/dL (70-105) H Total Calcium 9.2 mg/dL (8.5-10.1) Total Bilirubin 0.7 mg/dL (0.2-1.0) Aspartate Amino Transf (AST/SGOT) 103 U/L (10-37) H Alanine Aminotransferase (ALT/SGPT) 170 U/L (12-78) H Alkaline Phosphatase 164 U/L (50-136) H Troponin I High Sensitivity 5 ng/L (4-50) Total Protein 7.1 g/dL (6.0-8.3) Albumin 3.7 g/dL (3.5-5.0) Lipase 45 U/L (16-77) Labs Reviewed?: Yes MDM MDM: Differential diagnosis: Gastroenteritis, nausea and vomiting, diarrhea, Rationale: Tests considered and ordered secondary to shared decision making include: labs, ECG and radiology Previous outside records reviewed: Old ER visits. Risk of complication and/or morbidity or mortality of patient management: None Medications-Per medication reconciliation Need for hospitalization: Patient does meet criteria for hospitalization. Need for emergency major/minor surgery: No There are no social concerns with this patient. Prescription drug management Prescriptions will include symptomatic care Patient's prior external medical records from other ER visits were reviewed by me as indicated. Prior testing and results from previous visits were reviewed. Prior tests were taken into account with medical decision making and resource utilization, independent historian/historians were used to obtain complete medical history. I independently interpreted the test that were performed, results were reviewed by me and considered findings on radiology if ordered. Medical management and examination interpretation discussions were had by me with other qualified healthcare professionals as indicated for the patient's care. Patient will be admitted under the care of [facility] for ongoing management. ED Course Orders Procedure Category Date Status Time Cbc W Manual Diff LAB 11/20/24 Complete 06:50 Comprehensive LAB 11/20/24 Complete Metabolic Panel 06:50 0.9%Nacl 1000ml (Ns PHA 11/20/24 In Process 1000ml) 07:00 Ondansetron 4mg Inj PHA 11/20/24 Complete (Zofran 4mg Inj) 07:00 Pantoprazole 40mg Inj PHA 11/20/24 Complete (Protonix 40mg Inj 07:30 Lipase LAB 11/20/24 Complete 07:28 Urinalysis LAB 11/20/24 Logged W/Microscopic 07:28 Troponin I High LAB 11/20/24 Complete Sensitivity 07:28 12 Lead Ekg Tracing- EKG 11/20/24 Complete Technical 07:28 Us Abdominal Ruq\Ltd US 11/20/24 Resulted 07:44 Current Medications Medications (Trade) Dose Ordered Sig/Ranjith Route PRN Reason Start Time Stop Time Status Last Admin Dose Admin Ondansetron HCl (zoFRAN 4MG INJ) 4 mg ONCE ONCE IVP 11/20/24 07:00 11/20/24 07:01 DC 11/20/24 07:50 Pantoprazole Sodium (PROTonix 40MG INJ) 40 mg ONCE ONCE IVP 11/20/24 07:30 11/20/24 07:35 DC 11/20/24 07:50 Sodium Chloride 1,047 ml @ 349 mls/hr ONCE ONCE IV 11/20/24 07:00 11/20/24 09:59 11/20/24 07:51 Vital Signs Date Time Temp Pulse Resp B/P (MAP) Pulse Ox O2 Delivery O2 Flow Rate FiO2 11/20/24 07:51 62 16 111/69 99 Room Air* 0 21 11/20/24 06:57 98.1 65 15 104/52 98 Room Air* 0 21 11/20/24 06:34 98.4 65 18 124/81 100 Room Air 0 DX & DISP Disposition: Inpatient Decision to Admit Time: 09:30 Departure Impression: Primary Impression: Enterocolitis Additional Impressions: Epigastric pain, Nausea & vomiting Condition: Stable Referrals: MELY SKINNER MD (PCP) ALIS RUFF MD Nov 20, 2024 07:12
[2024-11-20 07:19] LABS: HEMATOCRIT 37.2 % (36-48); MEAN CORPUSCULAR HEMOGLOBIN 31.9 pg (27.0-33.0); MEAN CORPUSCULAR HGB CONC 33.1 g/dL (32.0-36.0); MEAN CORPUSCULAR VOLUME 96.4 fL (79-99); PLATELET COUNT (AUTO) 234 K/uL (130-400); RED BLOOD CELL COUNT(AUTO) 3.86 MIL/uL (4.00-5.50); RED CELL DISTRIBUTION WIDTH 13.7 % (11.0-15.5); WHITE BLOOD COUNT (AUTO) 5.5 K/uL (4.8-10.8)
[2024-11-20 07:35] LABS: ALBUMIN 3.7 g/dL (3.5-5.0); BILIRUBIN,TOTAL 0.7 mg/dL (0.2-1.0); CREATININE 1.4 mg/dL (0.5-1.0); TOTAL PROTEIN, SERUM 7.1 g/dL (6.0-8.3)
[2024-11-20] MEDS: ondanSETRON 4MG INJ IVP ONE (07:50)
[2024-11-20] MEDS: PANTOPrazole 40 MG/VIAL IVP ONE (07:50)
[2024-11-20] MEDS: 0.9%NACL 1000ML 1,047 ML IV ONE (07:51)
--- NOTE | 2024-11-20 08:14 | EKG ---
[facility] Test Date: 2024-11-20 Test Time: 07:49:52 Pat Name: HAYDEN RUGGIERO Department: ED Room: 322 Gender: F [employer] Professional: [id number] Requested By: ALIS RUFF Order Number: [id number] Reading MD: Tam Hoffmann Measurements Intervals [place] Rate: 57 P: 3 NC: 198 QRS: 17 QRSD: 85 T: -3 QT: 440 QTc: 428 Interpretive Statements Sinus rhythm Low voltage, precordial leads Compared to ECG 10/13/2024 14:23:13 No significant changes Electronically Signed On 11-20-2024 20:59:48 CDT by Tam Hoffmann Please click the below link to view image of tracing.
[2024-11-20 08:33] LABS: EOSINOPHILS % (MANUAL) 5 % (1-6); LYMPHOCYTES % (MANUAL) 19 % (22-44); MONOCYTES % (MANUAL) 9 % (2-9); REACTIVE LYMPHOCYTES 2 % (0-0); SEGMENTED NEUTROPHILS % 65 % (40-70); TOTAL CELLS COUNTED 100
[2024-11-20 08:34] LABS: MAN.DIFF COMMENT-IMPRESSION MANUAL DIFFERENTIAL; PLATELET MORPHOLOGY COMMENT ADEQUATE
--- NOTE | 2024-11-20 09:00 | HMCIMG ---
US ABDOMINAL RUQ\E\LTD HISTORY: Pain COMPARISON: CT from 08/06/2023 TECHNIQUE: Right upper quadrant abdominal ultrasound study was performed. FINDINGS: Liver measured 13 cm. The visualized portion of the pancreas is within normal limits. Liver is echogenic consistent with liver parenchymal disease. Gallbladder has been removed. Common duct measures 6 mm. Right kidney measures 9.7 x 5.4 x 3.7 cm. There is right lower pole simple renal cyst measuring 1.5 x 1 x 1.1 cm. No hydronephrosis is seen of the right kidney. IMPRESSION: 1. Post cholecystectomy. No ductal dilatation is seen. 2. No hydronephrosis is seen.
[2024-11-20 10:20] LABS: APPEARANCE,URINE CLOUDY (CLEAR); BILIRUBIN,URINE NEGATIVE (NEGATIVE); COLOR,URINE LIGHT-YELLOW (YELLOW); GLUCOSE, URINE (UA) NEGATIVE (NEGATIVE); KETONES,URINE NEGATIVE (NEGATIVE); LEUKOCYTE ESTERASE ,URINE NEGATIVE Leu/uL (NEGATIVE); NITRATE,URINE NEGATIVE (NEGATIVE); OCCULT BLOOD,URINE NEGATIVE (NEGATIVE); PROTEIN,URINE 10 mg/dL (NEGATIVE); UROBILINOGEN,URINE 0.2 mg/dL (0.2-1.0)
[2024-11-20] MEDS ORDERED: NITROGLYCERIN 0.4 MG SL TAB SL PRN (10:30)
[2024-11-20] MEDS ORDERED: acetaMINOPHEN 325 MG TAB PO PRN (10:30)
[2024-11-20] MEDS ORDERED: hydrALAZine 25MG TABLET PO PRN (10:30)
[2024-11-20 10:36] LABS: MUCUS,URINE RARE LPF (None Seen); RBC,URINE 0-1 /HPF (0-1); SQUAMOUS EPITHELIAL CELL,UR FEW /HPF (0-2)
[2024-11-20] MEDS: cefTRIAXone 2GM VIAL IVPB SCH (10:48)
[2024-11-20] MEDS: LACTATED RINGERS 1000ML 1,000 ML IV SCH (10:54)
--- NOTE | 2024-11-20 11:04 | HP ---
[facility] HISTORY & PHYSICAL Date Patient Seen: Nov 20, 2024 Time of Visit: 11:04 Supervising Physician: Dr. Delio Merino Primary Care Physician: Dr. Mo Montano Inpatient Consults: NA PROBLEM LIST: Acute gastroenteritis, likely viral Intractable nausea & diarrhea Food poisoning Dehydration Acute kidney injury Elevated liver enzymes Hypertension History of DVT and PE on Xarelto Obesity, BMI 33 HPI: Patient is a 64-year-old female with past medical history of PE and DVT, HTN that presentedd to the ER with complaints of persistent diarrhea and nausea. Per patient she has been very nauseous has multiple diarrheal episodes with yesterday. She states that this began a couple of days ago after getting coming back from a trip from [facility] where she ate a lot of shrimp. Her symptoms had improved she was doing better then again two days ago the symptoms resurface and states he can not tolerate anything orally. On arrival to the ER, WBC 5.5. US abdomen post cholecystectomy. No ductal dilatation is seen, No hydronephrosis is seen. Upon assessment, patient is AAOX3. Currently on room air. Complains of nausea. Will start on IV Reglan and IV Zofran. Denies any chest pain, abdominal pain. Patient will be admitted for treatment. Goals of care explained, verbalized un derstanding. PAST MEDICAL HX: see above PAST SURGICAL HX: noncontributory SOCIAL HISTORY: No tobacco, ETOH, or illicit drug use Coded Allergies: No Known Drug Allergies (Unverified Allergy, Unknown, 12/05/20) REVIEW OF SYSTEMS: 12 point ROS reviewed with patient. Pertinent positives mentioned above. Otherwise negative. PHYSICAL EXAM: GENERAL: alert, weak, awake oriented x 3 HEENT: EOMI, Sclera non icteric, moist mucosa NECK: Supple, no JVD, trachea midline LUNGS: Clear breath sounds bilaterally. No wheezes HEART: Regular rate and rhythm. Normal S1 and S2, without murmurs ABD: Abdomen soft, nontender. Bowel sounds present EXT: No clubbing cyanosis or edema NEURO: Alert and oriented to person, follows commands Vital Signs (last 8hr) Date Time Temp Pulse Resp B/P (MAP) Pulse Ox O2 Delivery O2 Flow Rate FiO2 11/20/24 07:51 62 16 111/69 99 Room Air* 0 21 11/20/24 06:57 98.1 65 15 104/52 98 Room Air* 0 21 11/20/24 06:34 98.4 65 18 124/81 100 Room Air 0 LABS: Hematology Labs: Test 11/20/24 07:13 Range/Units White Blood Count 5.5 4.8-10.8 K/uL Red Blood Count 3.86 L 4.00-5.50 MIL/uL Hemoglobin 12.3 12.0-16.0 g/dL Hematocrit 37.2 36-48 % Mean Corpuscular Volume 96.4 79-99 fL Mean Corpuscular Hemoglobin 31.9 27.0-33.0 pg Mean Corpuscular Hemoglobin Concent 33.1 32.0-36.0 g/dL Red Cell Distribution Width 13.7 11.0-15.5 % Platelet Count 234 130-400 K/uL Mean Platelet Volume 9.2 7.5-10.5 fL Segmented Neutrophils % 65 40-70 % Lymphocytes % (Manual) 19 L 22-44 % Monocytes % (Manual) 9 2-9 % Eosinophils % (Manual) 5 1-6 % Nucleated Red Blood Cells 0.0 0.0-0.19 % Differential Comment MANUAL DIFFERENTIAL Reactive Lymphocytes 2 H 0-0 % White Cell Morphology Comment Platelet Morphology Comment ADEQUATE Red Blood Cell Morphology NORMAL Chemistry Labs: Test 11/20/24 07:13 Range/Units Sodium Level 140 136-145 mmol/L Potassium Level 4.0 3.5-5.1 mmol/L Chloride Level 106 101-111 mmol/L Carbon Dioxide Level 27 21-32 mmol/L Blood Urea Nitrogen 16 7-18 mg/dL Creatinine 1.4 H 0.5-1.0 mg/dL Glomerular Filtration Rate Calc 42 >90 mL/min Random Glucose 107 H 70-105 mg/dL Total Calcium 9.2 8.5-10.1 mg/dL Total Bilirubin 0.7 0.2-1.0 mg/dL Aspartate Amino Transf (AST/SGOT) 103 H 10-37 U/L Alanine Aminotransferase (ALT/SGPT) 170 H 12-78 U/L Alkaline Phosphatase 164 H 50-136 U/L Troponin I High Sensitivity 5 4-50 ng/L Total Protein 7.1 6.0-8.3 g/dL Albumin 3.7 3.5-5.0 g/dL Lipase 45 16-77 U/L DIAGNOSTICS / RADIOLOGY RESULTS: PROCEDURE: [id number] - US ABDOMINAL RUQ\LTD US ABDOMINAL RUQ\E\LTD HISTORY: Pain COMPARISON: CT from 08/06/2023 TECHNIQUE: Right upper quadrant abdominal ultrasound study was performed. FINDINGS: Liver measured 13 cm. The visualized portion of the pancreas is within normal limits. Liver is echogenic consistent with liver parenchymal disease. Gallbladder has been removed. Common duct measures 6 mm. Right kidney measures 9.7 x 5.4 x 3.7 cm. There is right lower pole simple renal cyst measuring 1.5 x 1 x 1.1 cm. No hydronephrosis is seen of the right kidney. IMPRESSION: 1. Post cholecystectomy. No ductal dilatation is seen. 2. No hydronephrosis is seen. PLAN NEURO: Minimize central acting medications as possible. Maintain fall precautions, adequate lighting during the day PULMONARY: Supplemental 02 as needed. Maintain aspiration precautions at all times CARDIOVASCULAR: Follow hemodynamics. Vital signs per facility protocol GI & NUTRITION: Continue with nutritional support. Continue stool softeners and laxatives as needed. KIDNEYS & ELECTROLYTES: Strict monitoring of intake, output and overall fluid balance. Avoid nephrotoxic medications to the extent possible. Medications to be dosed according to renal function. Monitor electrolytes and replace as needed ENDOCRINE: Maintain blood glucose between 100-180 at all times. Hypoglycemia protocol in place INFECTIOUS DISEASE: Trend temperature, WBC and procalcitonin level Follow cultures, deescalate antibiotics as soon as possible. Panculture if new onset fever ONCOLOGY/HEMATOLOGY/COAGULATION: Monitor for s/s of bleeding Monitor hemoglobin, coagulation studies as needed SKIN: Pressure ulcer prevention per facility protocol Specialty mattress ORTHO/REHAB: Continue PT/OT Prophylaxis: Continue GI and DVT prophylaxis Code Status: Full Resuscitation Disposition: MARISELA RIVERA NP Nov 20, 2024 11:04
[2024-11-20] MEDS: INSULIN LISpro 100 UNIT/ML 3ML SQ SCH (11:29)
[2024-11-20] MEDS: metRONIDazole 500MG/100ML BAG IV SCH (11:44)
[2024-11-20] MEDS: ondanSETRON 4MG INJ IVP PRN (11:44)
--- NOTE | 2024-11-20 13:06 | NUR ---
NO MARITZA ANSWERING FOR REPORT RM [id number]
[2024-11-20 13:30] VITALS: BP 134/71; PULSE 58; RESP 17; TEMP 97.8; O2SAT 99
--- NOTE | 2024-11-20 14:40 | NUR ---
DCP: HOME Pt currently lives alone in her home. Pt does not have any DME, home health, or provider services. Pt works at [employer]. Pt states that she is able to complete ADLs independently. PCP is Mo Montano and uses [facility] for any RX needs. At MD pt will go home and family can assist with transportation. Addendum: 11/20/24 at 1442 by DHARMESH LOVELL SS Amended: Links added.
[2024-11-20 15:00] VITALS: BP 123/69; PULSE 58; RESP 17; TEMP 97.9
[2024-11-20] MEDS: metoCLOPRAmide 10 MG/2 ML VIAL IVP SCH (17:28)
--- NOTE | 2024-11-20 19:18 | HMCIMG ---
CT ABDOMEN/PELVIS W/O CONTRAST HISTORY: Nausea and diarrhea COMPARISON: 08/06/2023 TECHNIQUE: Multiple sequential axial images of the abdomen and pelvis were obtained from the dome of the diaphragm through symphysis pubis. Patient was not given contrast through intravenous route. Oral contrast was not given. FINDINGS: No pleural effusion is seen bilaterally. There is no evidence of parenchymal disease or pulmonary nodule of the visualized lower lungs. Degenerative changes of the thoracolumbar spine are present. The heart is not enlarged. Post cholecystectomy changes are seen. The liver, spleen, adrenal glands and pancreas are unremarkable. There is no evidence of hydronephrosis bilaterally. No evidence of renal stone is seen. Fecal material is seen in the colon. There are normal size retroperitoneal and mesenteric lymph nodes. No ascites is seen. No CT evidence of acute appendicitis is seen. Pelvic sidewalls are symmetric bilaterally. Bladder is poorly distended. IMPRESSION: 1. No acute findings. CT was performed with one or more following dose reduction techniques: automated exposure control, adjustment of the mA and kv according to patient's size, or use of a iterative reconstruction technique.
[2024-11-20 20:00] VITALS: BP 135/77; PULSE 67; RESP 20; TEMP 98.1
[2024-11-20 20:16] VITALS: O2SAT 98
[2024-11-20] MEDS: FAMOTIDINE 20MG VIAL IV SCH (21:47)
[2024-11-21] VITALS (9 sets, daily range): BP systolic 118–135; BP diastolic 65–90; PULSE 60–75; RESP 18–20; TEMP 97.6–98.1; O2SAT 96–98
[2024-11-21 05:08] LABS: HEMATOCRIT 32.3 % (36-48); MEAN CORPUSCULAR HEMOGLOBIN 31.7 pg (27.0-33.0); MEAN CORPUSCULAR HGB CONC 33.7 g/dL (32.0-36.0); MEAN CORPUSCULAR VOLUME 93.9 fL (79-99); RED BLOOD CELL COUNT(AUTO) 3.44 MIL/uL (4.00-5.50); RED CELL DISTRIBUTION WIDTH 13.8 % (11.0-15.5); WHITE BLOOD COUNT (AUTO) 4.3 K/uL (4.8-10.8)
[2024-11-21 05:22] LABS: ALBUMIN 2.9 g/dL (3.5-5.0); BILIRUBIN,TOTAL 0.4 mg/dL (0.2-1.0); MAGNESIUM 1.6 mg/dL (1.80-2.40); POTASSIUM 3.7 mmol/L (3.5-5.1); TOTAL PROTEIN, SERUM 5.8 g/dL (6.0-8.3)
[2024-11-21] MEDS ORDERED: PoTASSium chloRIDE 20MEQ/100ML 100 ML IV PRN (07:00)
[2024-11-21] MEDS ORDERED: PoTASSium chl 10% ELIXIR 20MEQ 20 MEQ/15 ML UDCUP PO PRN (07:00)
[2024-11-21 07:03] LABS: HEPATITIS A IGM ANTIBODY Non-Reactive (Nonreactive); HEPATITIS B CORE IGM ANTIBODY Non-Reactive (Negative); HEPATITIS B SURFACE ANTIGEN Non-Reactive (Nonreactive); HEPATITIS C ANTIBODY Non-Reactive (Nonreactive)
[2024-11-21] MEDS: PoTASSium chloRIDE 20MEQ ER 20 MEQ ERTAB PO PRN (07:49)
[2024-11-21] MEDS: RIVAROXABAN 10 MG TABLET PO SCH (07:49)
--- NOTE | 2024-11-21 13:02 | PN ---
[facility] PROGRESS NOTE Date Patient Seen: Nov 21, 2024 Time of Visit: 13:01 Supervising Physician: Dr. Delio Merino Primary Care Physician: Dr. Mo Montano Inpatient Consults: NA PROBLEM LIST: Acute gastroenteritis, likely viral, likely from food poisoning Intractable nausea & diarrhea Dehydration Acute kidney injury, improved Elevated liver enzymes Hypertension History of DVT and PE on Xarelto Obesity, BMI 33 INTERVAL HISTORY: Patient assessed at bedside. AAOX3. States nausea has improved, but continues to have loose stools. States she has had 4 episodes today. States she feels better overall. Will start on probiotics today and advance diet. If diarrhea continues to improve, possible discharge in AM. REVIEW OF SYSTEMS: 12 point ROS reviewed with patient. Pertinent positives mentioned above. Otherwise negative. PHYSICAL EXAM: GENERAL: alert, weak, awake oriented x 3 HEENT: EOMI, Sclera non icteric, moist mucosa NECK: Supple, no JVD, trachea midline LUNGS: Clear breath sounds bilaterally. No wheezes HEART: Regular rate and rhythm. Normal S1 and S2, without murmurs ABD: Abdomen soft, nontender. Bowel sounds present EXT: No clubbing cyanosis or edema NEURO: Alert and oriented to person, follows commands Vital Signs (last 8hr) Date Time Temp Pulse Resp B/P (MAP) Pulse Ox O2 Delivery O2 Flow Rate FiO2 11/21/24 08:01 98 Room Air* 0 21 11/21/24 08:00 97.5 60 18 135/90 98 Room Air 21 LABS: Hematology Labs: Test 11/21/24 04:45 11/20/24 07:13 Range/Units White Blood Count 4.3 L 4.8-10.8 K/uL Red Blood Count 3.44 L 4.00-5.50 MIL/uL Hemoglobin 10.9 L 12.0-16.0 g/dL Hematocrit 32.3 L 36-48 % Mean Corpuscular Volume 93.9 79-99 fL Mean Corpuscular Hemoglobin 31.7 27.0-33.0 pg Mean Corpuscular Hemoglobin Concent 33.7 32.0-36.0 g/dL Red Cell Distribution Width 13.8 11.0-15.5 % Platelet Count 206 130-400 K/uL Mean Platelet Volume 9.7 7.5-10.5 fL Nucleated Red Blood Cells 0.0 0.0-0.19 % Segmented Neutrophils % 65 40-70 % Lymphocytes % (Manual) 19 L 22-44 % Monocytes % (Manual) 9 2-9 % Eosinophils % (Manual) 5 1-6 % Differential Comment MANUAL DIFFERENTIAL Reactive Lymphocytes 2 H 0-0 % White Cell Morphology Comment Platelet Morphology Comment ADEQUATE Red Blood Cell Morphology NORMAL Chemistry Labs: Test 11/21/24 11:34 11/21/24 04:45 11/20/24 07:13 Range/Units Whole Blood Glucose 84 70-110 MG/DL Bedside Glucose Comment Notified Nurse Sodium Level 140 136-145 mmol/L Potassium Level 3.7 3.5-5.1 mmol/L Chloride Level 106 101-111 mmol/L Carbon Dioxide Level 26 21-32 mmol/L Blood Urea Nitrogen 14 7-18 mg/dL Creatinine 1.0 0.5-1.0 mg/dL Glomerular Filtration Rate Calc 63 >90 mL/min Random Glucose 91 70-105 mg/dL Total Calcium 8.6 8.5-10.1 mg/dL Magnesium Level 1.60 L 1.80-2.40 mg/dL Total Bilirubin 0.4 # 0.2-1.0 mg/dL Aspartate Amino Transf (AST/SGOT) 52 H 10-37 U/L Alanine Aminotransferase (ALT/SGPT) 113 #H 12-78 U/L Alkaline Phosphatase 134 50-136 U/L Total Protein 5.8 L 6.0-8.3 g/dL Albumin 2.9 #L 3.5-5.0 g/dL Troponin I High Sensitivity 5 4-50 ng/L Lipase 45 16-77 U/L DIAGNOSTICS / RADIOLOGY RESULTS: NA PLAN NEURO: Minimize central acting medications as possible. Maintain fall precautions, adequate lighting during the day PULMONARY: Supplemental 02 as needed. Maintain aspiration precautions at all times CARDIOVASCULAR: Follow hemodynamics. Vital signs per facility protocol GI & NUTRITION: Continue with nutritional support. Continue stool softeners and laxatives as needed. KIDNEYS & ELECTROLYTES: Strict monitoring of intake, output and overall fluid balance. Avoid nephrotoxic medications to the extent possible. Medications to be dosed according to renal function. Monitor electrolytes and replace as needed ENDOCRINE: Maintain blood glucose between 100-180 at all times. Hypoglycemia protocol in place INFECTIOUS DISEASE: Trend temperature, WBC and procalcitonin level Follow cultures, deescalate antibiotics as soon as possible. Panculture if new onset fever ONCOLOGY/HEMATOLOGY/COAGULATION: Monitor for s/s of bleeding Monitor hemoglobin, coagulation studies as needed SKIN: Pressure ulcer prevention per facility protocol Specialty mattress ORTHO/REHAB: Continue PT/OT Prophylaxis: Continue GI and DVT prophylaxis Code Status: Full Resuscitation Disposition: MARISELA RIVERA NP Nov 21, 2024 13:01
[2024-11-21] MEDS: LACTOBACILLUS RHAMNOSUS GG 1 EACH CAP.SPRINK PO SCH (13:42)
[2024-11-21] MEDS: MAGNESIUM 2GM PREMIX 50ML 50 ML IV PRN (16:14)
[2024-11-21] MEDS: acetaMINOPHEN 325 MG TAB PO PRN (22:15)
[2024-11-22 04:19] VITALS: BP 145/82; PULSE 76; RESP 20; TEMP 98.1
[2024-11-22 06:13] LABS: HEMATOCRIT 33.4 % (36-48); MEAN CORPUSCULAR HEMOGLOBIN 31.4 pg (27.0-33.0); MEAN CORPUSCULAR HGB CONC 33.2 g/dL (32.0-36.0); MEAN CORPUSCULAR VOLUME 94.6 fL (79-99); RED BLOOD CELL COUNT(AUTO) 3.53 MIL/uL (4.00-5.50)
[2024-11-22 06:20] LABS: CREATININE 0.9 mg/dL (0.5-1.0); MAGNESIUM 1.9 mg/dL (1.80-2.40); POTASSIUM 3.8 mmol/L (3.5-5.1)
[2024-11-22 08:00] VITALS: BP 114/58; PULSE 71; RESP 18; TEMP 98
[2024-11-22 11:51] VITALS: BP 140/70; PULSE 64; RESP 19; TEMP 97.3
[2024-11-22] MEDS ORDERED: LEVO750T68 PO (12:30)
[2024-11-22] MEDS ORDERED: METR-172 PO (12:30)
--- NOTE | 2024-11-22 12:32 | DS ---
[facility] DISCHARGE SUMMARY Date Patient Seen: Nov 22, 2024 Time of Visit: 12:32 Supervising Physician: Dr. Delio Merino Primary Care Physician: Dr. Mo Montano Inpatient Consults: BECKY PROBLEM LIST: Acute gastroenteritis, likely viral, likely from food poisoning Intractable nausea & diarrhea, resolved Dehydration, resolved Acute kidney injury, resolved Elevated liver enzymes, improved Hypertension History of DVT and PE on Xarelto Obesity, BMI 33 HPI (per admitting provider): Patient is a 64-year-old female with past medical history of PE and DVT, HTN that presented to the ER with complaints of persistent diarrhea and nausea. Per patient she has been very nauseous has multiple diarrheal episodes with yesterday. She states that this began a couple of days ago after getting coming back from a trip from [facility] where she ate a lot of shrimp. Her symptoms had improved she was doing better then again two days ago the symptoms resurface and states he can not tolerate anything orally. On arrival to the ER, WBC 5.5. US abdomen post cholecystectomy. No ductal dilatation is seen, No hydronephrosis is seen. Upon assessment, patient is AAOX3. Currently on room air. Complains of nausea. Will start on IV Reglan and IV Zofran. Denies any chest pain, abdominal pain. Patient will be admitted for treatment. Goals of care explained, verbalized understanding. HOSPITAL COURSE: Patient was admitted due to persistent diarrhea and nausea due to food poisoning. She was started on IV fluids and IV ABX.Symptoms improved. Today, patient is tolerating soft diet and denies anymore diarrhea or nausea. States she is ready to go home. RX for levaquin and Flagyl sent to pharmacy, advised to follow up with PCP, verbalized understanding. New Medications: Levofloxacin (Levaquin 750Mg Tabs) 750 Mg Tablet 750 MG PO DAILY for 7 Days, #7 TAB Metronidazole (Metronidazole) 500 Mg Tablet 1 TAB PO TID for 7 Days, #30 TAB 0 Refills Ondansetron (Ondansetron Odt) 4 Mg Tab.rapdis 4 MG PO Q8H PRN for nausea for 14 Days, #42 TAB Continued Medications: Amlodipine Besylate (Amlodipine Besylate) 10 Mg Tablet 10 MG PO DAILY for 30 Days, #30 TAB 0 Refills Hydrochlorothiazide (Hydrochlorothiazide) 12.5 Mg Tablet 1 TAB PO DAILY for 30 Days, #30 TAB 0 Refills Losartan Potassium (Losartan Potassium) 25 Mg Tablet 1 TAB PO DAILY for 30 Days, #30 TAB 0 Refills Metoprolol Succinate (Metoprolol Succinate) 50 Mg Tab.er.24h 50 MG PO BID, TAB Rivaroxaban (Xarelto) 10 Mg Tablet 1 TAB PO DAILY for 7 Days, #7 TAB 0 Refills PHYSICAL EXAM: GENERAL: alert, weak, awake oriented x 3 HEENT: EOMI, Sclera non icteric, moist mucosa NECK: Supple, no JVD, trachea midline LUNGS: Clear breath sounds bilaterally. No wheezes HEART: Regular rate and rhythm. Normal S1 and S2, without murmurs ABD: Abdomen soft, nontender. Bowel sounds present EXT: No clubbing cyanosis or edema NEURO:AAOX3, follows commands FOLLOW-UP: Follow-up with PCP in 2-3 days RECOMMENDATIONS: See Discharge Instructions This case was seen and discussed with my supervising physician. More than 30 minutes spent on discharge process, including evaluation of the patient, discussion with nursing staff, medication reconciliation and follow-up appointments MARISELA MERINO NP Nov 22, 2024 12:32
[2024-11-23] MEDS ORDERED: ONDA-243 PO (07:11)
[2024-11-24 05:44] LABS: C DIFFICILE TOXIN A/B Not Detected (Not Detected); ENTEROAGGREGATIVE ECOLI Not Detected (Not Detected); GIARDIA LAMBLIA Not Detected (Not Detected); PLESIOMONAS SHIGELOIDES Not Detected (Not Detected); SAPOVIRUS Not Detected (Not Detected); SHIGELLA/ENTEROINVASIVE E COLI Not Detected (Not Detected); VIBRIO Not Detected (Not Detected); VIBRIO CHOLERAE Not Detected (Not Detected)
--- NOTE | 2024-11-25 17:28 | NUR ---
Transitional Phone Call Attempted to call twice, left message [phone] and no return call.
== END 2024-11-22 16:04 | disposition home or self-care (01) | DRG 392 ==
LOC: EDH 06:32 → EDHIP 06:33 → OBSVTOIN 06:33 → INTOOBSV 06:33 → UNDOADMOB 06:33 → OBSVTOIN 10:23 → EDHIP 10:23 → 3DH 13:30 → EDHIP 13:30
PROVIDERS: ADMIT Internal Medicine; ATTEND Internal Medicine
DX: A05.9 Bacterial foodborne intoxication, unspecified (principal); N17.9 Acute kidney failure, unspecified; A08.4 Viral intestinal infection, unspecified; E66.9 Obesity, unspecified; E86.0 Dehydration; I10 Essential (primary) hypertension; Z68.33 Body mass index [BMI] 33.0-33.9, adult; Z86.711 Personal history of pulmonary embolism; Z86.718 Personal history of other venous thrombosis and embolism; Z79.01 Long term (current) use of anticoagulants; Z79.899 Other long term (current) drug therapy; Z90.710 Acquired absence of both cervix and uterus
CPT/HCPCS: 36415; 74176; 76705; 80048; 80053; 80074; 81001; 82948; 83630; 83690; 83735; 84443; 84484; 85025; 85027; 87338; 87507; 93005; 96374; 96375; 99285; G0378; J0696; J2405; J2470; J2765; J3475; J3490; J7030

== ENCOUNTER 2025-05-24 00:23 | Emergency (ER) | payer BC, OTHER ==
[~2025-05-24] VITALS: Ht 162.6 cm; Wt 86.2 kg
[~2025-05-24 00:23] MED LIST changes: +HYDR12.54 PO; +LEVO750T68 PO; +LOSA25TA41 PO; +METR-172 PO; +ONDA-243 PO; +RIVA10TA PO; -ZOLP-684 PO
--- NOTE | 2025-05-24 00:25 | NUR ---
UA CUP PROVIDED
--- NOTE | 2025-05-24 00:25 | NUR ---
COVID, FLU AND STREP SWABS COLLECTED AND SENT FOR ANY FUTURE ORDERS
--- NOTE | 2025-05-24 00:50 | EKG ---
[facility] Test Date: 2025-05-24 Test Time: 00:41:04 Pat Name: HAYDEN RUGGIERO Department: ED Room: Gender: F Ribbon Weaver: [id number] : [id number] Requested By: COOPER KENNY Order Number: [id number] Reading MD: Radha Kay Measurements Intervals [place] Rate: 93 P: 19 IA: 161 QRS: 1 QRSD: 95 T: -31 QT: 349 QTc: 434 Interpretive Statements Sinus rhythm Probable anterior infarct, age indeterminate Compared to ECG 11/20/2024 07:49:52 Myocardial infarct finding now present Electronically Signed On 05-26-2025 08:57:43 [employer] by Radha Kay Please click the below link to view image of tracing.
--- NOTE | 2025-05-24 00:57 | ERN ---
ED Note History of Present Illness Stated Complaint: ABD PAIN, FEVER,NAUSEA Chief Complaint: Multiple Complaints Time Seen by MD: 00:25 Time Seen by Midlevel: 00:25 Dictation: The patient is a 65-year-old female with a history of hypertension , cholecy stectomy who presents to the emergency department with complaints of epigastric abdominal pain associated with nausea. Patient also reports fevers at home. Reports headache and weakness. Patient denies any cough or congestion. Denies any head trauma. Denies any vomiting or diarrhea. Reports she went to her primary doctor yesterday and was told she had a stomach virus but reports they did not perform any exams. Allergies: Coded Allergies: No Known Drug Allergies (Unverified Allergy, Unknown, 12/05/20) Home Meds Active Scripts Ondansetron (Ondansetron Odt) 4 Mg Tab.rapdis, 4 MG PO Q8H PRN for nausea for 14 Days, #42 TAB Prov:MARISELA WHEELER DNP 11/23/24 Metronidazole (Metronidazole) 500 Mg Tablet, 1 TAB PO TID for 7 Days, #30 TAB 0 Refills Prov:MARISELA WHEELER DNP 11/22/24 Levofloxacin (Levaquin 750Mg Tabs) 750 Mg Tablet, 750 MG PO DAILY for 7 Days, #7 TAB Prov:MARISELA WHEELER DNP 11/22/24 Reported Medications Hydrochlorothiazide (Hydrochlorothiazide) 12.5 Mg Tablet, 1 TAB PO DAILY for 30 Days, #30 TAB 0 Refills 11/20/24 Losartan Potassium (Losartan Potassium) 25 Mg Tablet, 1 TAB PO DAILY for 30 Days, #30 TAB 0 Refills 11/20/24 Rivaroxaban (Xarelto) 10 Mg Tablet, 1 TAB PO DAILY for 7 Days, #7 TAB 0 Refills 11/20/24 Amlodipine Besylate (Amlodipine Besylate) 10 Mg Tablet, 10 MG PO DAILY for 30 Days, #30 TAB 0 Refills 10/13/24 Metoprolol Succinate (Metoprolol Succinate) 50 Mg Tab.er.24h, 50 MG PO BID, TAB 10/13/24 Past Medical History Past Medical History: DVT, Hypertension, Other Additional Past Medical Hx: PULMONARY EMBOLISM,MRSA Surgical History: Hysterectomy, Cholecystectomy, Other Surgical History Other: BLADDER SX Family History: Negative Social History: Negative, Lives with family History: Not Applicable RN Note Reviewed/Agreed w/PFSH: Yes Review of System Dictation Constitutional: Negative for ,chills, and weight loss positive for fever Eyes: Negative for injury, pain,redness, and discharge ENT: Negative for injury,pain or swelling Cardiovascular: Negative for chest pain, palpitations, and edema Respiratory: Negative for shortness of breath, cough, and wheezing, Abdomen/GI: Negative for , vomiting, diarrhea, and constipation positive for abdominal pain, nausea Back: Negative for injury and pain : Negative for injury, bleeding and discharge MS/Extremity: Negative for injury and deformity Skin: Negative for rash, and discoloration Neuro: Negative for headache, numbness, tingling, and seizure positive for weakness Psych: Negative for suicide ideation, homicidal ideation, and hallucinations Initial Vital Sign VS Vital Signs Date Time Temp Pulse Resp B/P (MAP) Pulse Ox O2 Delivery O2 Flow Rate FiO2 05/24/25 00:24 99.0 100 20 135/70 98 Room Air 05/24/25 00:30 0 21 Physical Exam Dictation Vital Signs reviewed General Appearance: Alert, oriented x 3, no acute distress, well developed, nourished. Head and Face: non-traumatic. Eyes: PERRL, pink conjunctivas, eyelid no trauma, anterior chamber with arcus senilis. Ears: Pinnas intact and no signs of trauma or erythema ear canals clear and no discharge TM no erythema Nose: No discharge, no bleeding. Oropharynx: Mouth normal, tongue pink. pharynx clear,no erythema, tonsils no exudates, no abscesses noted, mucous membrane moist Neck: Supple, non-tender, no thyromegaly, no masses, no JVD, no bruits Breast:Deferred Chest:No tenderness, no crepitus, no paradoxical movement, no retractions Lungs:Clear, well-ventilated, symmetric, no rales, no wheezing, no rhonchi, no stridor, good breath sounds bilaterally Heart: Regular rate, regular rhythm, no murmur, no gallops Vascular: no peripheral edema, Abdomen: Soft, positive bowel sounds, nondistended, no guarding, Epigastric tenderness,, no rebound, no masses no hepatomegaly, no splenomegaly, no Pearson's sign, no hernias. Rectal: Deferred Genital: Deferred Neurological: Normal speech, motor function intact, sensory function intact , upper extremities equal in strength, lower extremities equal in strength Musculoskeletal: Neck nontender, full range of motion, back nontender, full range of motion, Extremities: nontender, full range of motion Skin: Color pink, dry, no turgor, no rash, no lacerations, no abrasions, no contusions. Lymphatic: Deferred Results (Laboratory/Radiology) Laboratory/Radiology Laboratory Tests Test 05/24/25 00:25 05/24/25 00:59 Influenza Type A Antigen Negative For Type A Influenza Type B Antigen Negative For Type B SARS-CoV-2 Antigen (Rapid) PRESUMPTIVE NEGATIVE Group A Streptococcus Rapid negative (NEGATIVE) White Blood Count 7.8 K/uL (4.8-10.8) Red Blood Count 4.26 MIL/uL (4.00-5.50) Hemoglobin 13.4 g/dL (12.0-16.0) Hematocrit 39.1 % (36-48) Mean Corpuscular Volume 91.8 fL (79-99) Mean Corpuscular Hemoglobin 31.5 pg (27.0-33.0) Mean Corpuscular Hemoglobin Concent 34.3 g/dL (32.0-36.0) Red Cell Distribution Width 12.7 % (11.0-15.5) Platelet Count 203 K/uL (130-400) Mean Platelet Volume 9.6 fL (7.5-10.5) Immature Granulocyte % (Auto) 0.3 % (0-1) Neutrophils (%) (Auto) 85.1 % (40.0-77.0) H Lymphocytes (%) (Auto) 8.5 % (21.0-51.0) L Monocytes (%) (Auto) 5.4 % (3.0-13.0) Eosinophils (%) (Auto) 0.3 % (0.0-8.0) Basophils (%) (Auto) 0.4 % (0.0-5.0) Neutrophils # (Auto) 6.7 K/uL (1.8-7.7) Lymphocytes # (Auto) 0.7 K/uL (1.0-4.8) L Monocytes # (Auto) 0.4 K/uL (0.1-1.0) Eosinophils # (Auto) 0.02 K/uL (0.00-0.70) Basophils # (Auto) 0.03 K/uL (0.00-0.20) Absolute Immature Granulocyte (auto 0.02 K/uL (0-1) Nucleated Red Blood Cells 0.0 % (0.0-0.19) White Cell Morphology Comment CONSISTENT W/DIFF Sodium Level 137 mmol/L (136-145) Potassium Level 2.9 mmol/L (3.5-5.1) *L Chloride Level 101 mmol/L (101-111) Carbon Dioxide Level 24 mmol/L (21-32) Blood Urea Nitrogen 24 mg/dL (7-18) H Creatinine 1.1 mg/dL (0.5-1.0) H Glomerular Filtration Rate Calc 56 mL/min (>90) Random Glucose 124 mg/dL (70-105) H Total Calcium 8.4 mg/dL (8.5-10.1) L Magnesium Level 1.60 mg/dL (1.80-2.40) L Total Bilirubin 0.7 mg/dL (0.2-1.0) Direct Bilirubin 0.2 mg/dL (0.0-0.3) Aspartate Amino Transf (AST/SGOT) 23 U/L (10-37) Alanine Aminotransferase (ALT/SGPT) 32 U/L (12-78) Alkaline Phosphatase 94 U/L (50-136) Total Creatine Kinase 105 U/L (21-232) # Troponin I High Sensitivity 6 ng/L (4-50) Total Protein 7.5 g/dL (6.0-8.3) Albumin 3.7 g/dL (3.5-5.0) Lipase 39 U/L (16-77) Labs Reviewed?: Yes ED Course ED Course Orders Procedure Category Date Status Time Cbc With Differential LAB 05/24/25 Complete 00:34 Troponin I High LAB 05/24/25 Complete Sensitivity 00:34 Urinalysis Profile LAB 05/24/25 Logged 00:34 12 Lead Ekg Tracing- EKG 05/24/25 Complete Technical 00:34 0.9%Nacl 1000ml (Ns PHA 05/24/25 Complete 1000ml) 01:00 Ondansetron 4mg Inj PHA 05/24/25 Complete (Zofran 4mg Inj) 01:00 Pantoprazole 40mg Inj PHA 05/24/25 Complete (Protonix 40mg Inj 01:00 Creatine Kinase, Total LAB 05/24/25 Complete 00:34 Lipase LAB 05/24/25 Complete 00:34 Basic Metabolic Panel LAB 05/24/25 Complete 00:34 Hepatic Function Panel LAB 05/24/25 Complete 00:34 Covid19 (Sars Antigen LAB 05/24/25 Complete Rapid) 00:34 Influenza Type A & B, LAB 05/24/25 Complete Rapid 00:34 Rapid (Group A Strep) LAB 05/24/25 Complete 00:34 Ketorolac PHA 05/24/25 Complete Tromethamine 15mg/Ml 01:30 Potassium Bicarb/Cit PHA 05/24/25 Complete Ac 25meq (K-Lyte Ta 02:30 Magnesium LAB 05/24/25 Complete 02:01 Acetaminophen 500mg PHA 05/24/25 Complete Tab (Tylenol 500mg T 02:30 Potassium Bicarb/Cit PHA 05/24/25 Complete Ac 25meq (K-Lyte Ta 02:05 Ct Abdomen/Pelvis W/O CT 05/24/25 Resulted Contrast 02:08 Magnesium 2gm Premix PHA 05/24/25 Complete 50ml (Magnesium 2gm 04:37 Magnesium 2gm Premix PHA 05/24/25 In Process 50ml (Magnesium 2gm 05:00 Magnesium Oxide PHA 05/24/25 In Process (Mag-Ox) 05:30 Orphenadrine Citrate PHA 05/24/25 Logged (Norflex) 05:30 Current Medications Medications (Trade) Dose Ordered Sig/Ranjith Route PRN Reason Start Time Stop Time Status Last Admin Dose Admin Acetaminophen (TYLenol 500MG TAB) 1,000 mg ONCE ONCE PO 05/24/25 02:30 05/24/25 02:31 DC 05/24/25 02:09 Ketorolac Tromethamine (toRADol) 15 mg ONCE ONCE IV 05/24/25 01:30 05/24/25 01:33 DC 05/24/25 01:36 Magnesium Oxide (Mag-Ox) 400 mg ONCE ONCE PO 05/24/25 05:30 05/24/25 05:31 Magnesium Sulfate 50 ml @ 0 mls/hr PROTOCOL IV 05/24/25 05:00 06/23/25 04:59 Magnesium Sulfate 50 ml @ As Directed STK-MED ONCE IV 05/24/25 04:37 05/24/25 04:38 DC 05/24/25 04:43 Ondansetron HCl (zoFRAN 4MG INJ) 4 mg ONCE ONCE IVP 05/24/25 01:00 05/24/25 01:01 DC 05/24/25 01:18 Orphenadrine Citrate (Norflex) 60 mg ONCE ONCE IM 05/24/25 05:30 05/24/25 05:31 UNV Pantoprazole Sodium (PROTonix 40MG INJ) 40 mg ONCE ONCE IVP 05/24/25 01:00 05/24/25 01:01 DC 05/24/25 01:18 Potassium Bicarbonate (K-Lyte Tablet Eff 25 Meq Tablet.eff) 25 meq STK-MED ONCE .ROUTE 05/24/25 02:05 05/24/25 02:06 DC Potassium Bicarbonate (K-Lyte Tablet Eff 25 Meq Tablet.eff) 50 meq ONCE ONCE PO 05/24/25 02:30 05/24/25 02:31 DC 05/24/25 02:07 Sodium Chloride 1,000 ml @ 0 mls/hr ONCE ONCE IV 05/24/25 01:00 05/24/25 01:01 DC 05/24/25 01:18 Vital Signs Date Time Temp Pulse Resp B/P (MAP) Pulse Ox O2 Delivery O2 Flow Rate FiO2 05/24/25 04:59 98.2 75 20 117/69 96 Room Air* 0 21 05/24/25 03:19 98.8 75 20 138/75 94 Room Air* 0 21 05/24/25 00:30 99.0 71 20 132/83 94 Room Air* 0 21 05/24/25 00:24 99.0 100 20 135/70 98 Room Air Medical Decision Making MDM The patient is a 65-year-old female with a history of hypertension , cholecystectomy who presents to the emergency department with complaints of epigastric abdominal pain associated with nausea. Patient also reports fevers at home. Reports headache and weakness. Patient denies any cough or congestion. Denies any head trauma. Denies any vomiting or diarrhea. Reports she went to her primary doctor yesterday and was told she had a stomach virus but reports they did not perform any exams. We will exam patient has a bilateral tympanic membrane erythema nasal turbinate swelling oropharyngeal erythema suggestive of sinusitis. Patient also states that she has been evaluated by cardiac cath tech for ongoing abdominal discomfort she calls it chronic gastritis versus chronic gastroenteritis. DX & DISP Disposition: Discharge Departure Impression: Primary Impression: Sinusitis Additional Impression: Enterocolitis Condition: Stable Scripts Fluticasone Propionate (Flonase Nasal [place]) 50 Mcg/Actuation [place] 2 SPRAY NS DAILY, #16 GM 0 Refills Prov: ALIS RUFF MD 05/24/25 Amoxicillin/Potassium Clav (Amox Tr-K Clv 875-125 mg Tab) 875 Mg-125 Mg Tablet 1 TAB PO BID for 10 Days, #20 TAB 0 Refills Prov: ALIS RUFF MD 05/24/25 Additional Instructions: FOLLOW-UP WITH PRIMARY CARE PROVIDER IN 1 TO 2 DAYS. TAKE MEDICATIONS DIRECTED HERE IN THE EMERGENCY ROOM. OKAY TO CONTINUE HOME MEDICATIONS UNLESS OTHERWISE DISCUSSED DURING YOUR VISIT IN THE EMERGENCY ROOM TODAY. RETURN TO YOUR NEAREST EMERGENCY ROOM IF SYMPTOMS WORSEN OR IF THERE IS NO IMPROVEMENT. CALL 911 IF YOU NEED IMMEDIATE ASSISTANCE. TAKE TYLENOL [id number] NEEDED AND IF NO CONTRAINDICATIONS ARE PRESENT. INCREASE ORAL HYDRATION. A WOUND CULTURE OR URINE CULTURE WAS ORDERED HERE IN THE EMERGENCY ROOM DEPARTMENT PLEASE FOLLOW-UP WITH PRIMARY CARE PROVIDER AND ADVISE THEM TO GET REPORTS FROM OUR FACILITY. IF YOU HAD ANY [place] WRAP/SPLINTS THAT WERE APPLIED HERE, PLEASE DO NOT REMOVE THEM UNTIL YOU SEE YOUR PRIMARY CARE OR SPECIALTY. Referrals: Referrals: MELY SKINNER MD (PCP) ELADIA ROJAS MD Time of Disposition: 05:21 COOPER KENNY May 24, 2025 00:57 ALIS RUFF MD May 24, 2025 05:22
[2025-05-24 01:13] LABS: IMMATURE GRANULOCYTE ABSOLUTE 0.02 K/uL (0-1); NUCLEATED RED BLOOD CELLS 0.0 % (0.0-0.19); PLATELET COUNT (AUTO) 203 K/uL (130-400); RED BLOOD CELL COUNT(AUTO) 4.26 MIL/uL (4.00-5.50); RED CELL DISTRIBUTION WIDTH 12.7 % (11.0-15.5); WHITE BLOOD COUNT (AUTO) 7.8 K/uL (4.8-10.8)
[2025-05-24] MEDS: 0.9%NACL 1000ML 1,000 ML IV ONE (01:18)
[2025-05-24 01:24] LABS: RAPID GROUP A STREP negative (NEGATIVE)
[2025-05-24 01:30] LABS: COVID19 (SARS ANTIGEN RAPID) PRESUMPTIVE NEGATIVE (NEGATIVE); INFLUENZA TYPE A Negative For Type A (NEGATIVE); INFLUENZA TYPE B Negative For Type B (NEGATIVE)
[2025-05-24 01:41] LABS: CREATININE 1.1 mg/dL (0.5-1.0); GLOMERULAR FILTR. RATE CALC 56.0 mL/min (>90); GLUCOSE,RANDOM 124.0 mg/dL (70-105); SODIUM SERUM 137.0 mmol/L (136-145); UREA NITROGEN, BLOOD 24.0 mg/dL (7-18)
[2025-05-24 01:46] LABS: ASPARTATE AMINOTRANSFERASE 23.0 U/L (10-37); CREATINE KINASE, TOTAL 105.0 U/L (21-232); TOTAL PROTEIN, SERUM 7.5 g/dL (6.0-8.3)
[2025-05-24 01:50] LABS: WBC MORPHOLOGY CONSISTENT W/DIFF
--- NOTE | 2025-05-24 04:21 | HMCIMG ---
EXAM: CT Abdomen and Pelvis Without IV contrast CLINICAL HISTORY: ABD PAIN TECHNIQUE: Axial computed tomography images of the abdomen and pelvis without intravenous contrast. Sagittal and coronal reconstructions are available and reviewed. CT scan is done according to ALARA (As Low As Reasonably Achievable). CONTRAST: No IV contrast. COMPARISON: 11/20/2024. FINDINGS: LUNG BASES: The lung bases appear clear. No pleural effusions are seen. LIVER: Unremarkable. GALLBLADDER AND BILE DUCTS: The gallbladder is surgically absent.. No biliary ductal dilatation is evident. PANCREAS: Unremarkable. SPLEEN: Unremarkable. Splenule at anterior pole. ADRENAL GLANDS: Unremarkable. KIDNEYS, URETERS, AND BLADDER: The kidneys appear within normal limits. There is no hydronephrosis or hydroureter. No urinary calculi are seen. STOMACH AND BOWEL: There is fat stranding in the right iliac fossa with circumferential mural thickening in the cecum up to 1.2 cm, in the terminal ileum at the level of the ileocecal junction up to 0.9cm; with mild haziness at the tip of the appendix. There is sparing of the rest of the appendix. A few surrounding pericolic and mesenteric lymph nodes with a short axis up to 6 mm. Minimal hiatal hernia. Unremarkable appearance of the stomach and the rest of the bowel. No evidence of bowel obstruction. APPENDIX: detailed above. PERITONEUM: No free fluid. No free air. LYMPH NODES: No lymphadenopathy is evident. REPRODUCTIVE: The uterus is surgically absent. Weakness of the pelvic floor with a cystocele. VASCULATURE: No evidence of abdominal aortic aneurysm. Mild calcific atherosclerotic disease in the abdominal aorta and its branches. BONES: No aggressive appearing osseous lesion. No acute osseous pathology is evident. Moderate spondylosis. IMPRESSION: Imaging features of typhlitis with extension of inflammation into the ileocecal junction, terminal ileum, and appendiceal tip with a few tiny mesenteric and pericolic lymph nodes up to 6 mm in short axis. However, in view of the patient's age, once the acute inflammation subsides, a colonoscopy is recommended to rule out any underlying neoplasm. This is a new finding compared to the previous CT scan dated 11/20/2024. /[place]
[2025-05-24] MEDS: MAGNESIUM 2GM PREMIX 50ML 50 ML IV ONE (04:43)
[2025-05-24] MEDS: MAGNESIUM 2GM PREMIX 50ML 50 ML IV SCH (04:46)
[2025-05-24 04:59] VITALS: BP 117/69; PULSE 75; RESP 20; TEMP 98.2; O2SAT 96
[2025-05-24] MEDS ORDERED: FLUT16H NS (05:21)
[2025-05-24] MEDS ORDERED: AMOX1TAB16 PO (05:21)
[2025-05-24] MEDS: ORPHENADRINE 60MG/2ML ONE (05:32)
[2025-05-24] MEDS: ORPHENADRINE 60MG/2ML IM ONE (05:32)
[2025-05-24] MEDS: MAGNESIUM OXIDE 400 MG TABLET PO ONE (05:32)
== END 2025-05-24 05:48 | disposition home or self-care (01) ==
LOC: EDH 00:23
DX: J32.9 Chronic sinusitis, unspecified (principal); K52.9 Noninfective gastroenteritis and colitis, unspecified; I10 Essential (primary) hypertension; R51.9 Headache, unspecified; Z79.899 Other long term (current) drug therapy; Z79.01 Long term (current) use of anticoagulants; Z90.49 Acquired absence of other specified parts of digestive tract; Z90.710 Acquired absence of both cervix and uterus; Z86.711 Personal history of pulmonary embolism; Z86.718 Personal history of other venous thrombosis and embolism; Z20.822 Contact with and (suspected) exposure to COVID-19
CPT/HCPCS: 99285; 74176; 96374; 96375; 87426; 82550; 80076; 83735; 84484; 80048; 83690; 85025; 87880; 87804 ×2; 36415; 93005; 96372; J1885; J3475; J7030; J2405; J2470; J2360